=== PATIENT | female | born 1955 | race Caucasian/White ===

== ENCOUNTER 2018-03-11 20:02 | Inpatient (IN) | payer MEDICARE, MEDICAID ==
[~2018-03-11 20:02] MED LIST: ETOMIDATE INJ/PF 20 MG/10 ML SDV IV ONE; SUCCINYLCHOLINE CHLORIDE INJ 200 MG/10 ML VIAL IV ONE
[2018-03-11] MEDS ORDERED: METHYLPREDNISOLONE INJ 125 MG/2 ML SDV IV ONE (20:24)
[2018-03-11] MEDS ORDERED: MAGNESIUM SULFATE INJ 8 MEQ/2 ML IV ONE (20:24)
[2018-03-11] MEDS ORDERED: FUROSEMIDE INJ/PF 40 MG/4 ML SDV IV ONE (20:25)
[2018-03-11] MEDS ORDERED: ALBUTEROL SULFATE 0.083% NEB 2.5 MG/3 ML AMPUL NEB ONE ×3 (20:25→23:10)
[2018-03-11] MEDS ORDERED: PROPOFOL INJ 200 MG/20 ML VIAL IV ONE (20:25)
[2018-03-11] MEDS ORDERED: LEVOFLOXACIN 750 MG/D5W RTU 750 MG/150 ML RTUPB IV ONE (20:32)
--- NOTE | 2018-03-11 20:33 | RADIOLOGY REPORT (SQ) ---
EXAM DESCRIPTION: CHEST SINGLE VIEW COMPLETED DATE/TIME: 03/11/2018 8:24 pm REASON FOR STUDY: intubated COMPARISON: None. EXAM PARAMETERS: NUMBER OF VIEWS: One view. TECHNIQUE: Single frontal radiographic view of the chest acquired. RADIATION DOSE: NA LIMITATIONS: None. FINDINGS: LUNGS AND PLEURA: No infiltrate or effusion. MEDIASTINUM AND HILAR STRUCTURES: No masses. Contour normal. HEART AND VASCULAR STRUCTURES: Heart normal in size. Normal vasculature. BONES: No acute findings. HARDWARE: Endotracheal tube has its tip 3 cm above the aleah. An NG tube extends to the body of the stomach. OTHER: No other significant finding. IMPRESSION: Life lines as described. No acute cardiopulmonary findings. TECHNICAL DOCUMENTATION: JOB ID: [id number] [employer]- All Rights Reserved Reading location - IP/workstation name: [email or web address]
[2018-03-11] MEDS ORDERED: FENTANYL CITRATE INJ/PF 100 MCG/2 ML AMPUL ONE ×2 (20:37→21:19)
[2018-03-11] MEDS ORDERED: FENTANYL CITRATE INJ/PF 100 MCG/2 ML AMPUL IV ONE ×6 (20:37→23:45)
[2018-03-11] MEDS: PROPOFOL 1,000 MG/100 ML INFUS..BTL IV PRN (20:44)
[2018-03-11] MEDS: MAGNESIUM SULFATE/D5W 1 GM/100 ML RTUPB IV SCH ×2 (20:45→21:10)
[2018-03-11 20:49] LABS: ABSOLUTE BASOPHILS # (AUTO) 0.2 10^3/uL (0.0-0.2); ABSOLUTE EOSINOPHILS # (AUTO) 0.3 10^3/uL (0.0-0.6); ABSOLUTE LYMPHOCYTES (AUTO) 6.3 10^3/uL (0.5-4.7); ABSOLUTE MONOCYTES (AUTO) 0.9 10^3/uL (0.1-1.4); ABSOLUTE NEUT (AUTO) 8.5 10^3/uL (1.7-8.2); BASOPHILS % (AUTO) 1.3 % (0-2); EOSINOPHILS % (AUTO) 1.6 % (0-6); HEMATOCRIT 41.3 % (36.0-47.0); HEMOGLOBIN 13.7 g/dL (12.0-15.5); LYMPHOCYTES % (AUTO) 39.1 % (13-45); MEAN CORPUSCULAR HEMOGLOBIN 30.2 pg (27.0-33.4); MEAN CORPUSCULAR HGB CONC 33.2 g/dL (32.0-36.0); MEAN CORPUSCULAR VOLUME 91 fl (80-97); MONOCYTES % (AUTO) 5.5 % (3-13); PLATELET COUNT 470 10^3/uL (150-450); RED BLOOD COUNT 4.54 10^6/uL (3.72-5.28); SEGMENTED NEUTROPHILS % (AUTO) 52.5 % (42-78); TOTAL CELLS COUNTED % (AUTO) 100 %; WHITE BLOOD COUNT 16.1 10^3/uL (4.0-10.5)
[2018-03-11] MEDS ORDERED: KETAMINE HCL INJ 500 MG/10 ML VIAL IV ONE (20:53)
[2018-03-11 21:05] LABS: BLOOD UREA NITROGEN 11 mg/dL (7-20); CALCIUM 8.7 mg/dL (8.4-10.2)
[2018-03-11 21:06] LABS: ALANINE AMINOTRANSFERASE 67 U/L (9-52); ALBUMIN 4.1 g/dL (3.5-5.0); ALKALINE PHOSPHATASE 147 U/L (38-126); ANION GAP 16 (5-19); ASPARTATE AMINO TRANSFERASE 154 U/L (14-36); BILIRUBIN,DIRECT 0.7 mg/dL (0.0-0.4); BILIRUBIN,TOTAL 0.7 mg/dL (0.2-1.3); CARBON DIOXIDE 21 mmol/L (22-30); CHLORIDE 99 mmol/L (98-107); POTASSIUM 5.5 mmol/L (3.6-5.0); SODIUM 135.5 mmol/L (137-145); TOTAL PROTEIN 6.7 g/dL (6.3-8.2)
[2018-03-11 21:19] LABS: GLUCOSE 432 mg/dL (75-110)
--- NOTE | 2018-03-11 21:23 | ER Document Report ---
ED General - General Chief Complaint: Respiratory Distress Stated Complaint: RESPIRATORY DISTRESS Time Seen by Provider: 03/11/18 20:23 Cannot obtain history due to: Unstable vital signs - [facility] Notes: 63-year-old female with a history of COPD, congestive heart failure, asthma, hypertension, high cholesterol, diabetes presents by EMS with acute respiratory failure. According to the family she has not felt well since yesterday. She then called out for help from her room. Family states she was on a breathing treatment but "was not breathing." They called EMS. EMS states that her sats were 80% on her normal neb. She had gradually worsening mental status changes and did not tolerate CPAP. She was being bagged upon arrival. She has had some purposeful movements but has been nonverbal with them. Daughter states that she has been intubated in the past. She recently moved from [place] and has never been to our facility before. Not on home oxygen. Past Medical History - General Information source: Relative Cannot obtain history due to: Unstable vital signs - Social History Smoking Status: Current Every Day Smoker Family History: Reviewed & Not Pertinent - Past Medical History Cardiac Medical History: Reports: Hx Hypercholesterolemia, Hx Hypertension Pulmonary Medical History: Reports: Hx Asthma, Hx COPD, Hx Pneumonia, Hx Intubation, Hx Respiratory Failure Endocrine Medical History: Reports: Hx Diabetes Mellitus Type 2, Hx Hypothyroidism GI Medical History: Reports: Hx Gastroesophageal Reflux Disease Psychiatric Medical History: Reports: Hx Depression Review of Systems - Review of Systems -: Yes ROS unobtainable due to patient's medical condition - respiratory failure Physical Exam - Vital signs Vitals: Pulse Ox 95 03/11/18 20:15 Interpretation: Hypertensive, Tachycardic, Hypoxic - General General appearance: Unresponsive In distress: Severe - HEENT Head: Normocephalic, Atraumatic Conjunctiva: Normal Pupils: Dilated - Respiratory Respiratory status: Agonal respirations, Cyanosis Chest status: No: Ecchymosis Breath sounds: Decreased air movement - Cardiovascular Rhythm: Tachycardia Heart sounds: Normal auscultation Murmur: No Normal capillary refill: No - Abdominal Inspection: Obese Distension: No distension - Extremities General upper extremity: Normal inspection General lower extremity: Normal inspection - Neurological Cognition: Inattentive Marlys Coma Scale Motor: Withdraws to Pain - Skin Skin Temperature: Warm Skin Moisture: Dry Skin Color: Mottled Course - Re-evaluation Re-evalutation: 03/11/18 21:24 Patient mottled upon arrival and being bagged by EMS. She was immediately intubated using a glide scope. Initially tachycardic and hypertensive. After sedation with propofol, blood pressure dropped to 70 systolic. Propofol stopped and fluids are given. She was given fentanyl boluses and started on a ketamine drip. She was given Solu-Medrol, magnesium, and continuous nebs through the vent. She had frequent episodes of hypoxia related to increased respiratory rate when she would awaken. I have had to continuously adjust the vent for appropriate oxygenation and ventilation. She has elevated white blood cell count with suspicious infiltrate on chest x-ray although read negative by radiology. Given Levaquin. Culture sent. 03/11/18 22:03 Discussed with hospitalist for admission. - Vital Signs Vital signs: Temp Pulse Resp BP Pulse Ox 95 03/11/18 20:15 - Laboratory Result Diagrams: 03/11/18 20:30 03/11/18 20:30 Laboratory results interpreted by me: 03/11/18 03/11/18 03/11/18 20:30 20:30 20:30 WBC 16.1 H Plt Count 470 H Absolute Neutrophils 8.5 H Absolute Lymphocytes 6.3 H Carbonic Acid ABG pH ABG pCO2 ABG pO2 ABG O2 Saturation Sodium 135.5 L Potassium 5.5 H Carbon Dioxide 21 L Glucose 432 H* Direct Bilirubin 0.7 H AST 154 H ALT 67 H Alkaline Phosphatase 147 H NT-Pro-B Natriuret Pep 2140 H 03/11/18 20:46 WBC Plt Count Absolute Neutrophils Absolute Lymphocytes Carbonic Acid 1.95 H ABG pH 7.13 L* ABG pCO2 64.7 H ABG pO2 170.6 H ABG O2 Saturation 98.6 H Sodium Potassium Carbon Dioxide Glucose Direct Bilirubin AST ALT Alkaline Phosphatase NT-Pro-B Natriuret Pep Critical Care Note - Critical Care Note Total time excluding time spent on procedures (mins): 60 - Critical care time spent obtaining history from patient or surrogate, discussions with consultants , development of treatment plan with patient or surrogate, evaluation of patient 's response to treatment, examination of patient, ordering and performing treatments and interventions, ordering and review of laboratory studies, re- evaluation of patient's condition, ordering and review of radiographic studies and review of old charts Discharge - Discharge Clinical Impression: Acute respiratory failure with hypoxia and hypercapnia Condition: Critical Disposition: ADMITTED INPATIENT Admitting Provider: Hospitalist Unit Admitted: ICU
[2018-03-11] MEDS ORDERED: INSULIN REG, HUMAN 100 UNIT/ML 3 ML VIAL (PYX) IV ONE (21:26)
[2018-03-11 21:31] LABS: TROPONIN I 0.043 ng/mL
[2018-03-11] MEDS ORDERED: EPINEPHRINE INJ/PF 1 MG/1 ML AMPULE ONE (21:41)
[2018-03-11] MEDS ORDERED: EPINEPHRINE INJ 1 MG/10 ML DISP.SYRIN ONE (21:43)
[2018-03-11 21:46] LABS: ARTERIAL BLOOD BASE EXCESS -8.8 mmol/L; ARTERIAL BLOOD FIO2 100%; ARTERIAL BLOOD H2CO3 1.95 mmol/L (1.05-1.35); ARTERIAL BLOOD HCO3 21.1 mmol/L (20-24); ARTERIAL BLOOD O2 SATURATION 98.6 % (94-98); ARTERIAL BLOOD PCO2 64.7 mmHg (35-45); ARTERIAL BLOOD PO2 170.6 mmHg (80-100); ARTERIAL BLOOD TOTAL CO2 23.1 mmol/L (21-25)
[2018-03-11 21:48] LABS: ARTERIAL BLOOD PH 7.13 (7.35-7.45)
[2018-03-11] MEDS ORDERED: EPINEPHRINE INJ 1 MG/10 ML DISP.SYRIN IV ONE (21:55)
[2018-03-11] MEDS: MIDAZOLAM HCL 50 MG/100 ML RTUINJ IV PRN (22:17)
[2018-03-11 22:19] LABS: APPEARANCE,URINE CLEAR; BILIRUBIN,URINE NEGATIVE (NEGATIVE); COLOR,URINE YELLOW; GLUCOSE, URINE >=500 mg/dL (NEGATIVE); KETONES,URINE NEGATIVE (NEGATIVE); LEUKOCYTE ESTERASE,URINE NEGATIVE (NEGATIVE); NITRITE,URINE NEGATIVE (NEGATIVE); PROTEIN,URINE 100 mg/dL (NEGATIVE); URINE SPECIFIC GRAVITY 1.007; UROBILINOGEN,URINE NEGATIVE mg/dL (<2.0)
[2018-03-11] MEDS ORDERED: DEXTROSE 50%-WATER 25 GM/50 ML DISP.SYRIN IV PRN ×2 (22:52)
[2018-03-11] MEDS ORDERED: DEXTROSE 40% GEL 15 GM TUBE PO PRN ×2 (22:52)
[2018-03-11] MEDS ORDERED: GLUCAGON,HUMAN RECOMB 1 MG INJ SUBCUT PRN (22:52)
[2018-03-11] MEDS ORDERED: PROMETHAZINE HCL INJ 25 MG/1 ML VIAL IV PRN (22:52)
[2018-03-11] MEDS ORDERED: AZITHROMYCIN 500 MG in DEXTROSE 5%-WATER 250 ML IV ONE (23:00)
[2018-03-11] MEDS ORDERED: FENTANYL CITRATE/PF 600 MCG/60 ML BAG IV PRN (23:33)
[2018-03-11] MEDS ORDERED: AZITHROMYCIN INJ 500 MG VIAL IV PRN (23:44)
[2018-03-12 00:41] LABS: ARTERIAL BLOOD BASE EXCESS -5.7 mmol/L; ARTERIAL BLOOD H2CO3 1.81 mmol/L (1.05-1.35); ARTERIAL BLOOD HCO3 23.1 mmol/L (20-24); ARTERIAL BLOOD PCO2 60.2 mmHg (35-45); ARTERIAL BLOOD PO2 99.2 mmHg (80-100)
[2018-03-12 00:48] LABS: ARTERIAL BLOOD FIO2 50%
[2018-03-12] MEDS ORDERED: NOREPINEPHRINE BITARTRATE INJ/PF 4 MG/4 ML SDV IV ONE (00:52)
[2018-03-12] MEDS ORDERED: DEXTROSE 5%-WATER 250 ML with NOREPINEPHRINE BITARTRATE 4 MG IV PRN ×2 (01:03)
[2018-03-12 01:10] LABS: APPEARANCE,URINE CLEAR; BILIRUBIN,URINE NEGATIVE (NEGATIVE); COLOR,URINE STRAW; GLUCOSE, URINE >=500 mg/dL (NEGATIVE); KETONES,URINE NEGATIVE (NEGATIVE); LEUKOCYTE ESTERASE,URINE NEGATIVE (NEGATIVE); NITRITE,URINE NEGATIVE (NEGATIVE); PROTEIN,URINE 30 mg/dL (NEGATIVE); URINE SPECIFIC GRAVITY 1.007; UROBILINOGEN,URINE NEGATIVE mg/dL (<2.0)
[2018-03-12 01:12] LABS: URINE AMPHETAMINES SCREEN NEGATIVE; URINE BARBITURATES SCREEN NEGATIVE; URINE COCAINE SCREEN NEGATIVE; URINE MARIJUANA (THC) SCREEN NEGATIVE; URINE METHADONE SCREEN NEGATIVE; URINE PHENCYCLIDINE SCREEN NEGATIVE
[2018-03-12 01:19] LABS: URINE BENZODIAZEPINES SCREEN UNCONFIRMED POSITIVE
[2018-03-12] MEDS: METHYLPREDNISOLONE INJ 125 MG/2 ML SDV IV SCH ×4 (01:19→21:21)
[2018-03-12] MEDS ORDERED: DEXTROSE 50%-WATER 25 GM/50 ML DISP.SYRIN IV PRN ×2 (02:11)
[2018-03-12] MEDS ORDERED: DEXTROSE 40% GEL 15 GM TUBE PO PRN ×2 (02:11)
[2018-03-12] MEDS ORDERED: GLUCAGON,HUMAN RECOMB 1 MG INJ IM PRN (02:11)
--- NOTE | 2018-03-12 02:21 | PDOC H&P ---
History of Present Illness Admission Date/PCP: 03/11/18 22:18 None Patient complains of: Shortness of breath History of Present Illness: THELMA ARANGO is a 63 year old femaleWith history of COPD, intubated at least twice in the past, comes to the emergency department complaining of progressive shortness of breath. At the time of my evaluation the patient is already intubated on mechanical ventilator, her daughter is at the bedside and tells me that she is short of breath all the time today was worse. Patient was at her daughter's house standing at the counter, she had dinner and she went to her bathroom, suddenly they heard that she sreamed "help"; patient was found laying on the side with her laser treatments on her face. Patient has not been feeling well since the day before. Patient has been bagged upon arrival with subsequent intubation, as had agonal respirations and cyanosis with severe bilateral decreased air movement. Patient recently moved from [place] and does not have any primary care physician, her daughter took her to PCP yet for refill of her medications. Patient is active smoker 1 pack/day. In the ED multiple doses of fentanyl given. Initially placed on ketamine infusion as per the prevent make her severely hypotensive and could not obtain fentanyl infusion. Versed was ordered but not started initially. Initial ABG 7.13/64/110 IV Levaquin given. Past Medical History Cardiac Medical History: Reports: Congestive Heart Failure, Hyperlipidema, Hypertension Pulmonary Medical History: Reports: Asthma, Chronic Obstructive Pulmonary Disease (COPD), Intubation, Pneumonia, Respiratory Failure Endocrine Medical History: Reports: Diabetes Mellitus Type 2, Hypothyroidism GI Medical History: Reports: Gastroesophageal Reflux Disease Psychiatric Medical History: Reports: Depression, General Anxiety Disorder Past Surgical History Past Surgical History: Reports: Hysterectomy, Other - stent was placed unknown order Social History Information Source: Relative Lives with: Family Smoking Status: Current Every Day Smoker Cigarettes Packs Per Day: 20 Frequency of Alcohol Use: Rare Hx Recreational Drug Use: No Hx Prescription Drug Abuse: No - Advance Directive Resuscitation Status: Full Code Family History Family History: Reviewed & Not Pertinent Parental Family History Reviewed: Yes - Mother with diabetes mellitus and leg amputation Children Family History Reviewed: Unknown Sibling(s) Family History Reviewed.: Unknown Review of Systems Review of Systems: Unable to obtain as the patient is intubated under sedation Physical Exam Vital Signs: Temp Pulse Resp BP Pulse Ox 97.9 F 100 18 85/48 L 95 03/12/18 00:40 03/12/18 00:00 03/12/18 00:40 03/12/18 00:00 03/12/18 01:00 Intake & Output 03/10/18 03/11/18 03/12/18 06:59 06:59 06:59 Intake Total 2 Balance 2 Weight 86.6 kg Additional comments: General appearance: Intubated, sedated on mechanical ventilation Head: Normocephalic Eyes: PEERL Ears: External auditory canal and tympanic membranes clear Nose: No nasal discharge. Throat: Intubated, dry mucosa Neck: Neck supple, no masses or thyromegaly. Cardiac: Normal S1 and S2. No S3, S4 or murmurs. Rhythm is regular. There is no peripheral edema, cyanosis or pallor. Extremities are warm and well perfused. Capillary refill is less than 2 seconds. No carotid bruits. Lungs: Bilateral decreased breath sounds, with severe bilateral wheezing, rhonchi, diffuse crackles, not using accessory muscles. Intubated. Abdomen: Positive bowel sounds. Soft. Nondistended, nontender. No guarding or rebound. No masses. No hepatosplenomegaly Extremities: No significant deformity or joint abnormality. No edema. Peripheral pulses intact. No varicosities. Neurological: Unable to evaluate this patient is intubated Skin: Skin normal color, texture and turgor with no lesions or eruptions, warm and dry. Psychiatric: Unable to evaluate this patient is intubated Results Laboratory Results: 03/12/18 03/12/18 00:20 00:30 Carbonic Acid 1.81 H HCO3/H2CO3 Ratio 12:1 ABG pH 7.20 L* ABG pCO2 60.2 H ABG pO2 99.2 ABG HCO3 23.1 ABG O2 Saturation 96.0 ABG Base Excess -5.7 FiO2 50% Urine Color STRAW Urine Appearance CLEAR Urine pH 5.0 Ur Specific [place] 1.007 Urine Protein 30 H Urine Glucose (UA) >=500 H Urine Ketones NEGATIVE Urine Blood SMALL H Urine Nitrite NEGATIVE Ur Leukocyte Esterase NEGATIVE Urine WBC (Auto) 1 Urine RBC (Auto) 1 03/11/18 03/11/18 03/11/18 20:30 20:30 20:30 WBC 16.1 H RBC 4.54 Hgb 13.7 Hct 41.3 MCV 91 MCH 30.2 MCHC 33.2 RDW 14.0 Plt Count 470 H Seg Neutrophils % 52.5 Lymphocytes % 39.1 Monocytes % 5.5 Eosinophils % 1.6 Basophils % 1.3 Absolute Neutrophils 8.5 H Absolute Lymphocytes 6.3 H Absolute Monocytes 0.9 Absolute Eosinophils 0.3 Absolute Basophils 0.2 Carbonic Acid HCO3/H2CO3 Ratio ABG pH ABG pCO2 ABG pO2 ABG HCO3 ABG Total CO2 ABG O2 Saturation ABG Base Excess FiO2 Sodium 135.5 L Potassium 5.5 H Chloride 99 Carbon Dioxide 21 L Anion Gap 16 BUN 11 Creatinine 0.74 Est GFR ( Amer) > 60 Est GFR (Non-Af Amer) > 60 Glucose 432 H* Calcium 8.7 Total Bilirubin 0.7 Direct Bilirubin 0.7 H Neonat Total Bilirubin Not Reportable Neonat Direct Bilirubin Not Reportable Neonat Indirect Bili Not Reportable AST 154 H ALT 67 H Alkaline Phosphatase 147 H Troponin I 0.043 NT-Pro-B Natriuret Pep 2140 H Total Protein 6.7 Albumin 4.1 TSH Urine Color Urine Appearance Urine pH Ur Specific [place] Urine Protein Urine Glucose (UA) Urine Blood Urine Nitrite Urine Bilirubin Urine Urobilinogen Ur Leukocyte Esterase Urine WBC (Auto) Urine RBC (Auto) Squamous Epi Cells Auto Urine Mucus (Auto) Urine Ascorbic Acid Urine Opiates Screen Urine Methadone Screen Ur Barbiturates Screen Ur Phencyclidine Scrn Ur Amphetamines Screen U Benzodiazepines Scrn Urine Cocaine Screen U Marijuana (THC) Screen 03/11/18 03/11/18 03/11/18 20:30 20:30 20:30 WBC RBC Hgb Hct MCV MCH MCHC RDW Plt Count Seg Neutrophils % Lymphocytes % Monocytes % Eosinophils % Basophils % Absolute Neutrophils Absolute Lymphocytes Absolute Monocytes Absolute Eosinophils Absolute Basophils Carbonic Acid HCO3/H2CO3 Ratio ABG pH ABG pCO2 ABG pO2 ABG HCO3 ABG Total CO2 ABG O2 Saturation ABG Base Excess FiO2 Sodium Potassium Chloride Carbon Dioxide Anion Gap BUN Creatinine Est GFR ( Amer) Est GFR (Non-Af Amer) Glucose Calcium Total Bilirubin Direct Bilirubin Neonat Total Bilirubin Neonat Direct Bilirubin Neonat Indirect Bili AST ALT Alkaline Phosphatase Troponin I NT-Pro-B Natriuret Pep Total Protein Albumin TSH 6.21 H Urine Color YELLOW Urine Appearance CLEAR Urine pH 6.0 Ur Specific [place] 1.007 Urine Protein 100 H Urine Glucose (UA) >=500 H Urine Blood SMALL H Urine Nitrite NEGATIVE Urine Bilirubin NEGATIVE Urine Urobilinogen NEGATIVE Ur Leukocyte Esterase NEGATIVE Urine WBC (Auto) 1 Urine RBC (Auto) 1 Squamous Epi Cells Auto 1 Urine Mucus (Auto) RARE Urine Ascorbic Acid NEGATIVE Urine Opiates Screen NEGATIVE Urine Methadone Screen NEGATIVE Ur Barbiturates Screen NEGATIVE Ur Phencyclidine Scrn NEGATIVE Ur Amphetamines Screen NEGATIVE U Benzodiazepines Scrn UNCONFIRMED POSITIVE Urine Cocaine Screen NEGATIVE U Marijuana (THC) Screen NEGATIVE 03/11/18 03/12/18 20:46 00:20 WBC RBC Hgb Hct MCV MCH MCHC RDW Plt Count Seg Neutrophils % Lymphocytes % Monocytes % Eosinophils % Basophils % Absolute Neutrophils Absolute Lymphocytes Absolute Monocytes Absolute Eosinophils Absolute Basophils Carbonic Acid 1.95 H 1.81 H HCO3/H2CO3 Ratio 10:1 12:1 ABG pH 7.13 L* 7.20 L* ABG pCO2 64.7 H 60.2 H ABG pO2 170.6 H 99.2 ABG HCO3 21.1 23.1 ABG Total CO2 23.1 25.0 ABG O2 Saturation 98.6 H 96.0 ABG Base Excess -8.8 FiO2 100% 50% Sodium Potassium Chloride Carbon Dioxide Anion Gap BUN Creatinine Est GFR ( Amer) Est GFR (Non-Af Amer) Glucose Calcium Total Bilirubin Direct Bilirubin Neonat Total Bilirubin Neonat Direct Bilirubin Neonat Indirect Bili AST ALT Alkaline Phosphatase Troponin I NT-Pro-B Natriuret Pep Total Protein Albumin TSH Urine Color Urine Appearance Urine pH Ur Specific [place] Urine Protein Urine Glucose (UA) Urine Blood Urine Nitrite Urine Bilirubin Urine Urobilinogen Ur Leukocyte Esterase Urine WBC (Auto) Urine RBC (Auto) Squamous Epi Cells Auto Urine Mucus (Auto) Urine Ascorbic Acid Urine Opiates Screen Urine Methadone Screen Ur Barbiturates Screen Ur Phencyclidine Scrn Ur Amphetamines Screen U Benzodiazepines Scrn Urine Cocaine Screen U Marijuana (THC) Screen Impressions: Chest X-Ray 03/11/18 20:17 IMPRESSION: Life lines as described. No acute cardiopulmonary findings. Assessment & Plan - Diagnosis (1) Acute respiratory failure with hypoxia and hypercapnia Is this a current diagnosis for this admission?: Yes Plan: Acute hypoxic, hypercapnic respiratory failure, secondary to COPD exacerbation. Chest x-ray negative for infiltrates. Patient is currently intubated under sedation. Continue fentanyl and Versed infusion. RT consult. (2) COPD (chronic obstructive pulmonary disease) Is this a current diagnosis for this admission?: Yes Plan: Patient intubated under sedation, in the ICU. Continue telemetry monitoring. IV azithromycin. Solu-Medrol 60 mg every 6 hours. Repeat chest x-ray in the morning. (3) CHF (congestive heart failure) Is this a current diagnosis for this admission?: Yes Plan: Unknown if systolic or diastolic, due to her hypotension patient has been given fluids in the ED and I will continue with IV fluids until the morning that she has to be reassessed. BNP 2140, unknown baseline. (4) Diabetes mellitus type 2 in obese Is this a current diagnosis for this admission?: Yes Plan: Blood Sugar 432, I will place the patient on Accu-Cheks q. one hour with insulin lispro sliding scale and hypoglycemia protocol. IV fluids has been started. (5) Hypothyroidism Is this a current diagnosis for this admission?: Yes Plan: TSH 6.21, unknown compliance with her home medications. On levothyroxine. (6) Tobacco dependence Is this a current diagnosis for this admission?: Yes Plan: Smokes 1 pack/day. Needs counseline when extubated (7) Elevated LFTs Is this a current diagnosis for this admission?: Yes Plan: ALT 154, ALT 67, AF-1 47, unknown baseline. We will repeat this value. (8) Hyperkalemia Is this a current diagnosis for this admission?: Yes Plan: Potassium 5.5, likely related with her hyperglycemia. Might correct when we correct her blood sugar. - Time Time Spent: 50 to 70 Minutes Critical Time spent with patient: 35 or more minutes Anticipated discharge: Home Within: within 72 hours - Inpatient Certification Based on my medical assessment, after consideration of the patient's comorbidities, presenting symptoms, or acuity I expect that the services needed warrant INPATIENT care.: Yes I certify that my determination is in accordance with my understanding of Medicare's requirements for reasonable and necessary INPATIENT services [42 CFR 412.3e].: Yes Medical Necessity: Risk of Diagnosis Which Will Require Inpatient Eval/Care/ Monitoring
[2018-03-12] MEDS: MIDAZOLAM HCL 50 MG/100 ML RTUINJ IV PRN ×6 (02:26→23:15)
[2018-03-12] MEDS ORDERED: INSULIN LISPRO 100 UNIT/ML 3 ML VIAL ONE (02:38)
[2018-03-12] MEDS: INSULIN LISPRO 100 UNIT/ML 3 ML VIAL SUBCUT PRN ×5 (02:47→23:30)
[2018-03-12] MEDS ORDERED: ETOMIDATE INJ/PF 20 MG/10 ML SDV IV ONE (03:55)
--- NOTE | 2018-03-12 08:26 | EKG REPORT ---
SEVERITY:- ABNORMAL ECG - SINUS TACHYCARDIA PAIRED VENTRICULAR PREMATURE COMPLEXES BORDERLINE RIGHT AXIS DEVIATION LOW VOLTAGE IN FRONTAL LEADS BORDERLINE T WAVE ABNORMALITIES : Confirmed by: Syed Hinds MD 12-Mar-2018 07:33:35
[2018-03-12 09:21] LABS: HEMATOCRIT 38.2 % (36.0-47.0); HEMOGLOBIN 12.8 g/dL (12.0-15.5); MEAN CORPUSCULAR HEMOGLOBIN 29.6 pg (27.0-33.4); MEAN CORPUSCULAR HGB CONC 33.7 g/dL (32.0-36.0); MEAN CORPUSCULAR VOLUME 88 fl (80-97); PLATELET COUNT 397 10^3/uL (150-450); RED BLOOD COUNT 4.34 10^6/uL (3.72-5.28); WHITE BLOOD COUNT 15.1 10^3/uL (4.0-10.5)
[2018-03-12 09:29] LABS: ALANINE AMINOTRANSFERASE 96 U/L (9-52); ALKALINE PHOSPHATASE 142 U/L (38-126); ANION GAP 11 (5-19); ASPARTATE AMINO TRANSFERASE 126 U/L (14-36); BILIRUBIN,DIRECT 0.4 mg/dL (0.0-0.4); BILIRUBIN,TOTAL 0.5 mg/dL (0.2-1.3); BLOOD UREA NITROGEN 14 mg/dL (7-20); CALCIUM 8.4 mg/dL (8.4-10.2); CARBON DIOXIDE 23 mmol/L (22-30); CHLORIDE 104 mmol/L (98-107); GLUCOSE 392 mg/dL (75-110); POTASSIUM 4.9 mmol/L (3.6-5.0); TOTAL PROTEIN 6.6 g/dL (6.3-8.2)
[2018-03-12 09:51] LABS: ARTERIAL BLOOD BASE EXCESS -2.4 mmol/L; ARTERIAL BLOOD HCO3 24.3 mmol/L (20-24); ARTERIAL BLOOD O2 SATURATION 94.2 % (94-98); ARTERIAL BLOOD PCO2 49.7 mmHg (35-45); ARTERIAL BLOOD PH 7.31 (7.35-7.45); ARTERIAL BLOOD PO2 77.5 mmHg (80-100); ARTERIAL BLOOD TOTAL CO2 25.8 mmol/L (21-25)
[2018-03-12 09:54] LABS: ARTERIAL BLOOD FIO2 50%
[2018-03-12 10:06] LABS: ABSOLUTE LYMPHOCYTES# (MANUAL) 0.5 10^3/uL (0.5-4.7); ABSOLUTE MONOCYTES # (MANUAL) 0.2 10^3/uL (0.1-1.4); ABSOLUTE NEUTROPHILS# (MANUAL) 14.5 10^3/uL (1.7-8.2); BASOPHILS % (MANUAL) 0 % (0-2); EOSINOPHILS % (MANUAL) 0 % (0-6); LYMPHOCYTES % (MANUAL) 3 % (13-45); MONOCYTES % (MANUAL) 1 % (3-13); SEGMENTED NEUTROPHILS % (MAN) 96 % (42-78); TOTAL CELLS COUNTED 100
[2018-03-12 10:07] LABS: ANISOCYTOSIS SLIGHT; PLATELET CLUMPS PRESENT; PLATELET COMMENT ADEQUATE; PLATELET LARGE PRESENT; POIKILOCYTOSIS SLIGHT; SCHISTOCYTES SLIGHT; TOXIC GRANULATION 1+; TOXIC VACUOLATION PRESENT
[2018-03-12 10:08] LABS: ARTERIAL BLOOD BASE EXCESS -5.5 mmol/L; ARTERIAL BLOOD FIO2 50%; ARTERIAL BLOOD H2CO3 1.35 mmol/L (1.05-1.35); ARTERIAL BLOOD HCO3 21.1 mmol/L (20-24); ARTERIAL BLOOD O2 SATURATION 98.1 % (94-98); ARTERIAL BLOOD PCO2 44.9 mmHg (35-45); ARTERIAL BLOOD PH 7.29 (7.35-7.45); ARTERIAL BLOOD TOTAL CO2 22.4 mmol/L (21-25)
[2018-03-12 10:39] LABS: ABSOLUTE LYMPHOCYTES (AUTO) 0.6 10^3/uL (0.5-4.7); ABSOLUTE MONOCYTES (AUTO) 0.3 10^3/uL (0.1-1.4); ABSOLUTE NEUT (AUTO) 7.2 10^3/uL (1.7-8.2); HEMATOCRIT 36.5 % (36.0-47.0); HEMOGLOBIN 12.5 g/dL (12.0-15.5); LYMPHOCYTES % (AUTO) 7.7 % (13-45); MEAN CORPUSCULAR HEMOGLOBIN 30.3 pg (27.0-33.4); MEAN CORPUSCULAR HGB CONC 34.3 g/dL (32.0-36.0); MEAN CORPUSCULAR VOLUME 88 fl (80-97); MONOCYTES % (AUTO) 3.1 % (3-13); PLATELET COUNT 354 10^3/uL (150-450); RED BLOOD COUNT 4.12 10^6/uL (3.72-5.28); RED CELL DISTRIBUTION WIDTH 14.3 % (11.5-14.0); SEGMENTED NEUTROPHILS % (AUTO) 89.2 % (42-78); TOTAL CELLS COUNTED % (AUTO) 100 %; WHITE BLOOD COUNT 8.1 10^3/uL (4.0-10.5)
[2018-03-12] MEDS: AZITHROMYCIN 500 MG in DEXTROSE 5%-WATER 250 ML IV SCH (10:59)
[2018-03-12 11:00] LABS: ANION GAP 7 (5-19); BLOOD UREA NITROGEN 13 mg/dL (7-20); CALCIUM 8.6 mg/dL (8.4-10.2); CARBON DIOXIDE 25 mmol/L (22-30); CHLORIDE 106 mmol/L (98-107); GLUCOSE 294 mg/dL (75-110); POTASSIUM 4.8 mmol/L (3.6-5.0); SODIUM 138.3 mmol/L (137-145)
[2018-03-12] MEDS: IPRATROPIUM/ALBUTEROL 0.5-2.5 MG/3 ML AMPUL NEB PRN ×3 (11:28→19:56)
[2018-03-12] MEDS: PANTOPRAZOLE SODIUM 40 MG VIAL IV SCH (15:04)
[2018-03-12] MEDS: HEPARIN SOD (PORCINE) 5,000 UNIT/ML 1 ML SYRINGE SUBCUT SCH ×2 (15:05→21:21)
[2018-03-12 15:27] LABS: ARTERIAL BLOOD BASE EXCESS -4.2 mmol/L; ARTERIAL BLOOD H2CO3 1.14 mmol/L (1.05-1.35); ARTERIAL BLOOD HCO3 20.8 mmol/L (20-24); ARTERIAL BLOOD O2 SATURATION 96.9 % (94-98); ARTERIAL BLOOD PCO2 37.9 mmHg (35-45); ARTERIAL BLOOD PH 7.36 (7.35-7.45); ARTERIAL BLOOD PO2 93.9 mmHg (80-100)
[2018-03-12 15:30] LABS: ARTERIAL BLOOD FIO2 40%
[2018-03-12] MEDS: PROPOFOL 1,000 MG/100 ML INFUS..BTL IV PRN ×2 (15:45→21:23)
[2018-03-12] MEDS: NORMAL SALINE 1000 ML 1,000 ML IV PRN (16:52)
[2018-03-13 04:03] LABS: ABSOLUTE BASOPHILS # (AUTO) 0.1 10^3/uL (0.0-0.2); ABSOLUTE MONOCYTES (AUTO) 0.8 10^3/uL (0.1-1.4); ABSOLUTE NEUT (AUTO) 16.8 10^3/uL (1.7-8.2); BASOPHILS % (AUTO) 0.3 % (0-2); EOSINOPHILS % (AUTO) 0.1 % (0-6); HEMATOCRIT 35.8 % (36.0-47.0); LYMPHOCYTES % (AUTO) 5.5 % (13-45); MEAN CORPUSCULAR HEMOGLOBIN 29.4 pg (27.0-33.4); MEAN CORPUSCULAR HGB CONC 33.5 g/dL (32.0-36.0); MEAN CORPUSCULAR VOLUME 88 fl (80-97); MONOCYTES % (AUTO) 4.1 % (3-13); PLATELET COUNT 325 10^3/uL (150-450); RED BLOOD COUNT 4.07 10^6/uL (3.72-5.28); RED CELL DISTRIBUTION WIDTH 14.2 % (11.5-14.0); TOTAL CELLS COUNTED % (AUTO) 100 %
[2018-03-13] MEDS: MIDAZOLAM HCL 50 MG/100 ML RTUINJ IV PRN ×3 (04:11→23:28)
[2018-03-13] MEDS: PROPOFOL 1,000 MG/100 ML INFUS..BTL IV PRN ×4 (04:11→22:50)
[2018-03-13 04:20] LABS: ANION GAP 9 (5-19); BLOOD UREA NITROGEN 14 mg/dL (7-20); CALCIUM 8.5 mg/dL (8.4-10.2); CARBON DIOXIDE 22 mmol/L (22-30); CHLORIDE 109 mmol/L (98-107); GLUCOSE 248 mg/dL (75-110); POTASSIUM 4.2 mmol/L (3.6-5.0)
[2018-03-13 04:32] LABS: WHITE BLOOD COUNT 18.7 10^3/uL (4.0-10.5)
[2018-03-13 04:53] LABS: ARTERIAL BLOOD BASE EXCESS 0.3 mmol/L; ARTERIAL BLOOD FIO2 40; ARTERIAL BLOOD H2CO3 1.24 mmol/L (1.05-1.35); ARTERIAL BLOOD HCO3 25.1 mmol/L (20-24); ARTERIAL BLOOD O2 SATURATION 95.1 % (94-98); ARTERIAL BLOOD PCO2 41.3 mmHg (35-45); ARTERIAL BLOOD PO2 74.9 mmHg (80-100); ARTERIAL BLOOD TOTAL CO2 26.4 mmol/L (21-25)
[2018-03-13] MEDS: NORMAL SALINE 1000 ML 1,000 ML IV PRN ×2 (05:18→20:19)
[2018-03-13] MEDS: METHYLPREDNISOLONE INJ 125 MG/2 ML SDV IV SCH ×3 (05:19→21:06)
[2018-03-13] MEDS: HEPARIN SOD (PORCINE) 5,000 UNIT/ML 1 ML SYRINGE SUBCUT SCH ×3 (05:19→21:07)
[2018-03-13] MEDS: INSULIN LISPRO 100 UNIT/ML 3 ML VIAL SUBCUT PRN ×4 (05:19→23:45)
--- NOTE | 2018-03-13 06:13 | RADIOLOGY REPORT (SQ) ---
EXAM DESCRIPTION: XR CHEST 1 VIEW COMPLETED DATE/TME: 03/13/2018 06:00 CLINICAL HISTORY: 63 years Female, resp failure COMPARISON: One day prior. NUMBER OF VIEWS/TECHNIQUE: 1/AP FINDINGS: Adequate lung volume, clear parenchyma, normal cardiac silhouette, atherosclerosis, tip of an endotracheal tube is 6.6 cm from the aleah, consider 1.6 cm advancement of the endotracheal tube. Adequate appearing an enteric tube is obscured distally. No pneumothorax. Stable bony thorax. IMPRESSION: No significant change.
[2018-03-13] MEDS: IPRATROPIUM/ALBUTEROL 0.5-2.5 MG/3 ML AMPUL NEB PRN (08:47)
[2018-03-13] MEDS: PANTOPRAZOLE SODIUM 40 MG VIAL IV SCH (10:20)
[2018-03-13] MEDS: AZITHROMYCIN 500 MG in DEXTROSE 5%-WATER 250 ML IV SCH (10:20)
[2018-03-13 10:32] LABS: APPEARANCE,URINE SLIGHTLY-CLOUDY; BILIRUBIN,URINE NEGATIVE (NEGATIVE); COLOR,URINE YELLOW; GLUCOSE, URINE 150 mg/dL (NEGATIVE); KETONES,URINE TRACE mg/dL (NEGATIVE); LEUKOCYTE ESTERASE,URINE NEGATIVE (NEGATIVE); NITRITE,URINE NEGATIVE (NEGATIVE); PROTEIN,URINE 100 mg/dL (NEGATIVE); UROBILINOGEN,URINE NEGATIVE mg/dL (<2.0)
[2018-03-13] MEDS: BUDESONIDE NEB 0.5 MG/2 ML AMPUL NEB SCH ×2 (10:43→19:53)
[2018-03-13] MEDS ORDERED: BUDESONIDE NEB 0.5 MG/2 ML AMPUL NEB ONE (10:43)
[2018-03-13] MEDS: IPRATROPIUM/ALBUTEROL 0.5-2.5 MG/3 ML AMPUL NEB SCH ×2 (14:07→19:53)
[2018-03-13] MEDS ORDERED: VANCOMYCIN HCL 0 MG in DEXTROSE 5%-WATER 250 ML IV NR (15:45)
--- NOTE | 2018-03-13 16:00 | PDOC PROGRESS REPORT ---
Subjective Progress Note for:: 03/13/18 Subjective:: THELMA ARANGO is a 63 year old femaleWith history of COPD, intubated at least twice in the past, came to the ED c/o progressive SOB. Intubated in ED. Per daughter's she was standing at the counter, she had dinner and she went to her bathroom, suddenly they heard that she sreamed "help"; and the found her side with her. Prior day was feeling well. She was bagged upon arrival with subsequent intubation, as had agonal respirations and cyanosis with severe bilateral decreased air movement. Patient from [place] and does not have any PCP. Patient is active smoker 1 pack/day. Initial ABG 7.13/64/110 No acute events overnight. He was successfully weaned off of vasopressors, fentanyl drip, and and Versed. Propofol was started. Versed has to be restarted because patient was getting agitated and anxious on Versed alone. Reason For Visit: ACUTE HYPOXIC RESPIRATORY FAILURE Physical Exam Vital Signs: Temp Pulse Resp BP Pulse Ox 99.3 F 96 20 113/88 H 95 03/13/18 14:38 03/13/18 14:07 03/13/18 14:38 03/13/18 14:38 03/13/18 14:38 Intake & Output 03/12/18 03/13/18 03/14/18 06:59 06:59 06:59 Intake Total 21 1703 169 Output Total 400 1520 989 Balance -379 183 -820 Weight 86.6 kg 89.8 kg General appearance: PRESENT: no acute distress, well-developed, well-nourished, other - Intubated Head exam: PRESENT: atraumatic, normocephalic Ear exam: PRESENT: normal external ear exam Mouth exam: PRESENT: moist, tongue midline Neck exam: ABSENT: carotid bruit, JVD, lymphadenopathy, thyromegaly Respiratory exam: PRESENT: clear to auscultation sandor. ABSENT: rales, rhonchi, wheezes Cardiovascular exam: PRESENT: RRR. ABSENT: diastolic murmur, rubs, systolic murmur Pulses: PRESENT: normal dorsalis pedis pul Vascular exam: PRESENT: normal capillary refill GI/Abdominal exam: PRESENT: hypoactive bowel sounds, normal bowel sounds, soft. ABSENT: distended, guarding, mass, organolmegaly, rebound, tenderness Rectal exam: PRESENT: deferred Extremities exam: ABSENT: calf tenderness, clubbing, pedal edema Musculoskeletal exam: PRESENT: normal inspection Neurological exam: PRESENT: alert, awake, oriented to person, oriented to place , oriented to time, oriented to situation, CN II-XII grossly intact. ABSENT: motor sensory deficit Psychiatric exam: PRESENT: appropriate affect, normal mood. ABSENT: homicidal ideation, suicidal ideation Skin exam: PRESENT: dry, intact, warm. ABSENT: cyanosis, rash Results Laboratory Results: 03/13/18 03:50 03/13/18 03:50 03/12/18 03/13/18 03/13/18 15:10 03:50 03:50 WBC 18.7 H D RBC 4.07 Hgb 12.0 Hct 35.8 L MCV 88 MCH 29.4 MCHC 33.5 RDW 14.2 H Plt Count 325 Seg Neutrophils % 90.0 H Lymphocytes % 5.5 L Monocytes % 4.1 Eosinophils % 0.1 Basophils % 0.3 Absolute Neutrophils 16.8 H Absolute Lymphocytes 1.0 Absolute Monocytes 0.8 Absolute Eosinophils 0.0 Absolute Basophils 0.1 Carbonic Acid 1.14 HCO3/H2CO3 Ratio 18:1 ABG pH 7.36 ABG pCO2 37.9 ABG pO2 93.9 ABG HCO3 20.8 ABG O2 Saturation 96.9 ABG Base Excess -4.2 FiO2 40% Sodium 140.0 Potassium 4.2 Chloride 109 H Carbon Dioxide 22 Anion Gap 9 BUN 14 Creatinine 0.51 L Est GFR ( Amer) > 60 Est GFR (Non-Af Amer) > 60 Glucose 248 H Calcium 8.5 Magnesium 2.2 Urine Color Urine Appearance Urine pH Ur Specific [place] Urine Protein Urine Glucose (UA) Urine Ketones Urine Blood Urine Nitrite Ur Leukocyte Esterase Urine WBC (Auto) Urine RBC (Auto) 03/13/18 03/13/18 04:45 09:51 WBC RBC Hgb Hct MCV MCH MCHC RDW Plt Count Seg Neutrophils % Lymphocytes % Monocytes % Eosinophils % Basophils % Absolute Neutrophils Absolute Lymphocytes Absolute Monocytes Absolute Eosinophils Absolute Basophils Carbonic Acid 1.24 HCO3/H2CO3 Ratio 20:1 ABG pH 7.40 ABG pCO2 41.3 ABG pO2 74.9 L ABG HCO3 25.1 H ABG O2 Saturation 95.1 ABG Base Excess 0.3 FiO2 40 Sodium Potassium Chloride Carbon Dioxide Anion Gap BUN Creatinine Est GFR ( Amer) Est GFR (Non-Af Amer) Glucose Calcium Magnesium Urine Color YELLOW Urine Appearance SLIGHTLY-CLOUDY Urine pH 5.0 Ur Specific [place] 1.030 Urine Protein 100 H Urine Glucose (UA) 150 H Urine Ketones TRACE H Urine Blood NEGATIVE Urine Nitrite NEGATIVE Ur Leukocyte Esterase NEGATIVE Urine WBC (Auto) 1 Urine RBC (Auto) 3 03/12/18 03/12/18 03:59 03:59 Troponin I 0.054 NT-Pro-B Natriuret Pep 3480 H Impressions: Chest X-Ray 03/13/18 06:00 IMPRESSION: No significant change. Assessment & Plan - Diagnosis (1) Acute respiratory failure with hypoxia and hypercapnia Is this a current diagnosis for this admission?: Yes Plan: Currently intubated. No ABG pH of 7.4, carbon dioxide 41, O2 74 on FiO2 of 40% . We will continue ventilatory support. ABG tomorrow. Patient had marked leukocytosis of 18,000 will stop azithromycin and is tolerated broad-spectrum antibiotics. Cultures pending (2) COPD (chronic obstructive pulmonary disease) Is this a current diagnosis for this admission?: Yes Plan: Continue ventilatory management, steroids. (3) Diabetes mellitus type 2 in obese Is this a current diagnosis for this admission?: Yes (4) Elevated LFTs Is this a current diagnosis for this admission?: Yes Plan: No prior history. Hepatitis panel and liver ultrasound to rule out any hepatitis or cirrhosis. (5) Hypothyroidism Is this a current diagnosis for this admission?: Yes Plan: THC is 6.21 which is mildly elevated her free T4 and T3. (6) Tobacco dependence Is this a current diagnosis for this admission?: Yes Plan: Place on nicotine patch. (7) Pneumonia Is this a current diagnosis for this admission?: Yes Plan: Patient has been having marked leukocytosis will start on empiric antibiotics cultures have been negative. (8) CHF (congestive heart failure) Is this a current diagnosis for this admission?: Yes Plan: Patient recently moved from [place] no records available unsure if patient has history of CAD. However BNP was 3480 on admission. Will obtain echocardiography. Monitor volume status. (9) Frequent PVCs Is this a current diagnosis for this admission?: Yes Plan: Continue telemetry. Cardiology consulted. Troponins negative on admission.
[2018-03-13 17:24] LABS: POTASSIUM 3.9 mmol/L (3.6-5.0)
[2018-03-13 18:06] LABS: FREE T3 2.68 pg/mL (2.77-5.27); FREE T4 (FREE THYROXINE) 1.11 ng/dL (0.78-2.19)
[2018-03-13] MEDS: PIPERACILLIN SODIUM/TAZOBACTAM 4.5 GM in NORMAL SALINE 100 ML IV SCH ×2 (19:03→23:28)
--- NOTE | 2018-03-13 19:27 | XCELERA REPORT ---
[address] [address] Transthoracic Echocardiogram Report Name: THELMA ARANGO Age: 63 yrs Gender: Female : 1955 Patient Status: Inpatient Patient Location: ICU^601^A Study Date: 03/13/2018 01:52 PM Height: 66 in Weight: 197 lb BSA: 2.0 m2 Procedure: A complete two-dimensional transthoracic echocardiogram was performed (2D, M-mode, spectral and color flow Doppler). The study was technically difficult with many images being suboptimal in quality. Reason For Study: multifocal PVCs Ordering Physician: YOUSIF PALM Performed By: Estefany Bernal Interpretation Summary The Ejection Fraction estimate is 20-25% Doppler measurements suggest reversible restrictive left ventricular relaxation, which is associated with grade III/IV or moderate diastolic dysfunction There is mild concentric left ventricular hypertrophy. Left ventricular systolic function is severely reduced. The left ventricle is grossly normal size. There is severe global hypokinesis of the left ventricle. Regional wall motion abnormalities cannot be excluded due to limited visualization. The right ventricle is grossly normal size. The right ventricular systolic function is mildly reduced. The left atrium is moderately dilated. The right atrium is normal in size There is a mild amount of mitral regurgitation There is no mitral valve stenosis. There is no aortic valve stenosis No aortic regurgitation is present. There is a mild amount of tricuspid regurgitation There is moderate pulmonary hypertension by echo Best estimated right ventricular systolic pressure is elevated at 50-60mmHg. The aortic root is not well visualized. The inferior vena cava appeared normal and decreased > 50% with respiration (RAP 5-10 mmHg) MMode/2D Measurements & Calculations RVDd: 2.2 cm LVIDd: 4.7 cm FS: 14.5 % Ao root diam: 2.8 cm IVSd: 0.93 cm LVIDs: 4.1 cm EDV(Teich): 104.3 ml Ao root area: 6.1 cm2 LVPWd: 0.86 cm ESV(Teich): 72.1 ml LA dimension: 4.2 cm EF(Teich): 30.9 % Doppler Measurements & Calculations MV E max sam: MV P1/2t max sam: Ao V2 max: LV V1 max P.7 cm/sec 104.6 cm/sec 168.3 cm/sec 1.5 mmHg MV A max sam: MV P1/2t: 45.8 msec Ao max PG: LV V1 max: 72.1 cm/sec MVA(P1/2t): 4.8 cm2 11.3 mmHg 61.7 cm/sec MV E/A: 1.4 MV dec slope: 669.1 cm/sec2 MV dec time: 0.14 sec PA V2 max: TR max sam: MV P1/2t-pr_phl: 73.1 cm/sec 335.3 cm/sec 45.8 msec PA max P.1 mmHg TR max P.0 mmHg Left Ventricle The left ventricle is grossly normal size. There is mild concentric left ventricular hypertrophy. The Ejection Fraction estimate is 20-25%. Left ventricular systolic function is severely reduced. Doppler measurements suggest reversible restrictive left ventricular relaxation, which is associated with grade III/IV or moderate diastolic dysfunction. There is severe global hypokinesis of the left ventricle. Regional wall motion abnormalities cannot be excluded due to limited visualization. Right Ventricle The right ventricle is grossly normal size. The right ventricular systolic function is mildly reduced. Atria The right atrium is normal in size. The left atrium is moderately dilated. Mitral Valve The mitral valve is grossly normal. There is no mitral valve stenosis. There is a mild amount of mitral regurgitation. Aortic Valve The aortic valve is mildly calcified. There is no aortic valve stenosis. No aortic regurgitation is present. Tricuspid Valve The tricuspid valve is not well visualized, but is grossly normal. There is no tricuspid stenosis. There is a mild amount of tricuspid regurgitation. There is moderate pulmonary hypertension by echo. Best estimated right ventricular systolic pressure is elevated at 50-60mmHg. Pulmonic Valve The pulmonic valve is not well visualized. Great Vessels The aortic root is not well visualized. The inferior vena cava appeared normal and decreased > 50% with respiration (RAP 5-10 mmHg). Effusions There is no pericardial effusion. : YOUSIF PALM > Yousif Palm
--- NOTE | 2018-03-13 19:36 | PDOC CONSULTATION ---
Consultation Consult Date: 03/13/18 Attending physician:: NILE PALM Consult reason:: Increased ventricular ectopy History of Present Illness Admission Date/PCP: 03/11/18 22:18 Patient complains of: Currently intubated and sedated History of Present Illness: THELMA ARANGO is a 63 year old femaleWith history of COPD, intubated at least twice in the past, comes to the emergency department complaining of progressive shortness of breath. At the time of my evaluation the patient is already intubated on mechanical ventilator, her daughter is at the bedside and tells me that she is short of breath all the time today was worse. Patient was at her daughter's house standing at the counter, she had dinner and she went to her bathroom, suddenly they heard that she sreamed "help"; patient was found laying on the side with her laser treatments on her face. Patient has not been feeling well since the day before. Patient has been bagged upon arrival with subsequent intubation, as had agonal respirations and cyanosis with severe bilateral decreased air movement. Patient recently moved from [place] and does not have any primary care physician, her daughter took her to PCP yet for refill of her medications. Patient is active smoker 1 pack/day. In the ED multiple doses of fentanyl given. Initially placed on ketamine infusion as per the prevent make her severely hypotensive and could not obtain fentanyl infusion. Versed was ordered but not started initially. Initial ABG 7.13/64/110 IV Levaquin given. Patient daughter on bedside. History reviewed with her. Patient is noted to have severe congestive heart failure and also very weak heart. She has not seen a digital marketing specialist locally. She denied any prior history of myocardial infarction, bypass, there is questionable history of stents in the heart. Past Medical History Cardiac Medical History: Reports: Congestive Heart Failure, Hyperlipidema, Hypertension Pulmonary Medical History: Reports: Asthma, Chronic Obstructive Pulmonary Disease (COPD), Intubation, Pneumonia, Respiratory Failure Endocrine Medical History: Reports: Diabetes Mellitus Type 2, Hypothyroidism GI Medical History: Reports: Gastroesophageal Reflux Disease Psychiatric Medical History: Reports: Depression, General Anxiety Disorder Past Surgical History Past Surgical History: Reports: Hysterectomy, Other - stent was placed unknown order Social History Information Source: Relative Lives with: Family Smoking Status: Current Every Day Smoker Cigarettes Packs Per Day: 20 Frequency of Alcohol Use: Rare Hx Recreational Drug Use: No Hx Prescription Drug Abuse: No - Advance Directive Resuscitation Status: Full Code Surrogate healthcare decision maker:: Patient's daughter is the surrogate decision-maker Family History Family History: Reviewed & Not Pertinent Parental Family History Reviewed: Yes Children Family History Reviewed: Yes Sibling(s) Family History Reviewed.: Yes Medication/Allergy Home Medications: Albuterol Sulfate [Ventolin HFA MDI 18 GM] 2 puff IH Q6HP PRN 03/12/18 Atorvastatin Calcium [Lipitor 40 mg Tablet] 40 mg PO QHS 03/12/18 Budesonide/Formoterol Fumarate [Symbicort Hfa 160-4.5 Mcg Inhaler 6 gm] 1 puff IH Q12 03/12/18 Cilostazol 50 mg PO Q12 03/12/18 Clonazepam [Klonopin 1 mg Tablet] 2 mg PO Q12 03/12/18 Clonidine HCl [Catapres 0.2 mg Tablet] 0.2 mg PO DAILY 03/12/18 Furosemide [Lasix 20 mg Tablet] 20 mg PO QAM 03/12/18 Gabapentin [Neurontin 400 mg Capsule] 400 mg PO Q8 03/12/18 Ipratropium/Albuterol Sulfate [Combivent Respimat 4 gm Mdi] 1 puff IH Q12 Ipratropium/Albuterol Sulfate [Duoneb 3 ml Ampul] 3 ml NEB RTQ6HP PRN 03/12/18 Levothyroxine Sodium [Synthroid 0.025 mg Tablet] 25 mcg PO Q6AM 03/12/18 Losartan Potassium [Cozaar 25 mg Tablet] 25 mg PO DAILY 03/12/18 Metformin HCl [Glucophage] 850 mg PO BIDBS 03/12/18 Montelukast Sodium [Singulair 10 mg Tablet] 10 mg PO QHS 03/12/18 Nifedipine [Nifedipine ER] 30 mg PO DAILY 03/12/18 Omeprazole 20 mg PO DAILY 03/12/18 Sertraline HCl [Zoloft 50 mg Tablet] 50 mg PO DAILY 03/12/18 Umeclidinium [place] [Incruse Ellipta] 1 puff IH DAILY 03/12/18 Allergies/Adverse Reactions: codeine Allergy (Intermediate, Verified 03/12/18 02:46) Review of Systems ROS unobtainable: Due to endotracheal tube Physical Exam Vital Signs: Temp Pulse Resp BP Pulse Ox 99.0 F 89 20 112/95 H 94 03/13/18 18:00 03/13/18 18:00 03/13/18 18:00 03/13/18 18:00 03/13/18 18:00 Intake & Output 03/12/18 03/13/18 03/14/18 06:59 06:59 06:59 Intake Total 21 1703 259 Output Total 400 1520 1319 Balance -379 183 -1060 Weight 86.6 kg 89.8 kg Exam: GENERAL: well-nourished and in no acute distress. Patient is intubated and sedated. Orientation cannot be checked HEAD: Atraumatic, normocephalic. EYES: Pupils equal round and reactive to light, extraocular movements could not be checked, sclera anicteric, conjunctiva are normal. ENT: TMs normal, nares patent, oropharynx clear without exudates. Moist mucous membranes. No oral ulcerations or bleeding gums noted NECK: supple without lymphadenopathy or JVD. Trachea is central. No cervical or axillary lymphadenopathy noted. Carotids are 2+ LUNGS: Breath sounds mostly clear to auscultation patient is noted to have bibasal crackles at the extreme bases CHEST: Palpation of the chest wall shows no significant chest wall tenderness or abnormalities. HEART: [place] GENERAL, No PSH, 2/6 IVAN aortic area, 1/6 gee systolic murmur mitral area , no rubs or gallops. ABDOMEN: Soft, no significant tenderness appreciated, normoactive bowel sounds. No guarding, no rebound. No rigidity noted . No masses appreciated. EXTREMITIES: Pedal pulses are 1-2+, no calf tenderness noted, 1+ pedal edema noted. No clubbing or cyanosis. NEUROLOGICAL: The patient cannot participate in the neurological exam but no facial asymmetry noted. Extremities slightly hypotonic PSYCH: This cannot be evaluated. Patient cannot participate. SKIN: No significant ecchymosis, rash, or signs of pruritus noted. MUSCULOSKELETAL EXAM: No significant joint swelling noted. Patient cannot participate in musculoskeletal exam Results Laboratory Results: 03/13/18 03:50 03/13/18 17:00 03/13/18 03/13/18 03/13/18 03:50 03:50 04:45 WBC 18.7 H D RBC 4.07 Hgb 12.0 Hct 35.8 L MCV 88 MCH 29.4 MCHC 33.5 RDW 14.2 H Plt Count 325 Seg Neutrophils % 90.0 H Lymphocytes % 5.5 L Monocytes % 4.1 Eosinophils % 0.1 Basophils % 0.3 Absolute Neutrophils 16.8 H Absolute Lymphocytes 1.0 Absolute Monocytes 0.8 Absolute Eosinophils 0.0 Absolute Basophils 0.1 Carbonic Acid 1.24 HCO3/H2CO3 Ratio 20:1 ABG pH 7.40 ABG pCO2 41.3 ABG pO2 74.9 L ABG HCO3 25.1 H ABG O2 Saturation 95.1 ABG Base Excess 0.3 FiO2 40 Sodium 140.0 Potassium 4.2 Chloride 109 H Carbon Dioxide 22 Anion Gap 9 BUN 14 Creatinine 0.51 L Est GFR ( Amer) > 60 Est GFR (Non-Af Amer) > 60 Glucose 248 H Calcium 8.5 Magnesium 2.2 Free T4 Free T3 pg/mL Urine Color Urine Appearance Urine pH Ur Specific [place] Urine Protein Urine Glucose (UA) Urine Ketones Urine Blood Urine Nitrite Ur Leukocyte Esterase Urine WBC (Auto) Urine RBC (Auto) 03/13/18 03/13/18 03/13/18 09:51 17:00 17:00 WBC RBC Hgb Hct MCV MCH MCHC RDW Plt Count Seg Neutrophils % Lymphocytes % Monocytes % Eosinophils % Basophils % Absolute Neutrophils Absolute Lymphocytes Absolute Monocytes Absolute Eosinophils Absolute Basophils Carbonic Acid HCO3/H2CO3 Ratio ABG pH ABG pCO2 ABG pO2 ABG HCO3 ABG O2 Saturation ABG Base Excess FiO2 Sodium Potassium 3.9 Chloride Carbon Dioxide Anion Gap BUN Creatinine Est GFR ( Amer) Est GFR (Non-Af Amer) Glucose Calcium Magnesium 2.2 Free T4 1.11 Free T3 pg/mL 2.68 L Urine Color YELLOW Urine Appearance SLIGHTLY-CLOUDY Urine pH 5.0 Ur Specific [place] 1.030 Urine Protein 100 H Urine Glucose (UA) 150 H Urine Ketones TRACE H Urine Blood NEGATIVE Urine Nitrite NEGATIVE Ur Leukocyte Esterase NEGATIVE Urine WBC (Auto) 1 Urine RBC (Auto) 3 03/12/18 03/12/18 03:59 03:59 Troponin I 0.054 NT-Pro-B Natriuret Pep 3480 H EKG Comments: Sinus tachycardia, occasional VPCs, no acute ST-T wave changes are noted. Impressions: Chest X-Ray 03/13/18 06:00 IMPRESSION: No significant change. Assessment & Plan - Diagnosis (1) Acute respiratory failure with hypoxia and hypercapnia Is this a current diagnosis for this admission?: Yes (2) CHF (congestive heart failure) Is this a current diagnosis for this admission?: Yes (3) COPD (chronic obstructive pulmonary disease) Qualifiers: COPD type: unspecified COPD Qualified Code(s): J44.9 - Chronic obstructive pulmonary disease, unspecified Is this a current diagnosis for this admission?: Yes (4) Diabetes mellitus type 2 in obese Is this a current diagnosis for this admission?: Yes (5) Frequent PVCs Is this a current diagnosis for this admission?: Yes (6) Tobacco dependence Is this a current diagnosis for this admission?: Yes (7) Pneumonia Qualifiers: Pneumonia type: due to unspecified organism Laterality: unspecified laterality Lung location: unspecified part of lung Qualified Code(s): J18.9 - Pneumonia, unspecified organism Is this a current diagnosis for this admission?: Yes - Notes Notes: Acute respiratory failure with hypoxemia and hypercarbia: Possibly related to underlying COPD, pneumonitis, with some contribution from CHF. Agree with oxygenation and artificial ventilation. Recommend intermittent IV Lasix. Congestive heart failure: Patient has a history of it. At this time, patient seems to be relatively euvolemic to slightly fluid overloaded. As blood pressure would support, intermittent Lasix intravenously is being recommended to keep patient on the dry side. COPD: Agree with mechanical ventilation and oxygenation. Diabetes: Recommend good control of blood sugar but avoid any hypo-or hyperglycemia. Frequent ventricular ectopy: Have ordered a 2D echo. Recommend low-dose beta- david therapy as tolerated by her pulmonary and blood pressure problems. Further plans after 2D echo. In the meantime maintain good oxygenation, maintain electrolytes within normal limits. Tobacco dependency: Currently patient not smoking as he is intubated. Pneumonia: Agree with broad-spectrum antibiotics. With leave management to anesthesiologist and cement paver. - Time Time Spent: 30 to 50 Minutes - CODE STATUS was discussed, patient remains full code. Surrogate decision-maker unchanged. Multiple medical problems were addressed. More than 50% of the time spent coordinating care, discussing management plans with involved caregivers. Management plans discussed with involved personnels. Medical decision making was of moderate to high complexity , patient's has multiple comorbidities. Medications reviewed and adjusted accordingly: Yes
[2018-03-13] MEDS: VANCOMYCIN HCL 1,250 MG in DEXTROSE 5%-WATER 250 ML IV SCH (21:06)
[2018-03-13] MEDS: LEVALBUTEROL HCL NEB 1.25 MG/3 ML AMPUL NEB PRN (23:54)
[2018-03-14] MEDS: IPRATROPIUM/ALBUTEROL 0.5-2.5 MG/3 ML AMPUL NEB SCH ×4 (01:34→19:58)
[2018-03-14] MEDS: ACETAMINOPHEN 325 MG TABLET PO PRN (01:35)
[2018-03-14] MEDS: PROPOFOL 1,000 MG/100 ML INFUS..BTL IV PRN ×4 (03:29→18:55)
[2018-03-14 04:07] LABS: ABSOLUTE LYMPHOCYTES (AUTO) 0.8 10^3/uL (0.5-4.7); ABSOLUTE MONOCYTES (AUTO) 0.4 10^3/uL (0.1-1.4); ABSOLUTE NEUT (AUTO) 13.2 10^3/uL (1.7-8.2); BASOPHILS % (AUTO) 0.2 % (0-2); HEMATOCRIT 35.4 % (36.0-47.0); HEMOGLOBIN 11.9 g/dL (12.0-15.5); LYMPHOCYTES % (AUTO) 5.4 % (13-45); MEAN CORPUSCULAR HEMOGLOBIN 29.8 pg (27.0-33.4); MEAN CORPUSCULAR HGB CONC 33.7 g/dL (32.0-36.0); MEAN CORPUSCULAR VOLUME 88 fl (80-97); MONOCYTES % (AUTO) 2.5 % (3-13); PLATELET COUNT 324 10^3/uL (150-450); RED BLOOD COUNT 4.01 10^6/uL (3.72-5.28); RED CELL DISTRIBUTION WIDTH 14.1 % (11.5-14.0); SEGMENTED NEUTROPHILS % (AUTO) 91.9 % (42-78); TOTAL CELLS COUNTED % (AUTO) 100 %; WHITE BLOOD COUNT 14.3 10^3/uL (4.0-10.5)
[2018-03-14 04:15] LABS: ANION GAP 9 (5-19); BLOOD UREA NITROGEN 20 mg/dL (7-20); CARBON DIOXIDE 21 mmol/L (22-30); CHLORIDE 109 mmol/L (98-107); GLUCOSE 313 mg/dL (75-110); POTASSIUM 3.9 mmol/L (3.6-5.0); SODIUM 138.6 mmol/L (137-145)
[2018-03-14 05:47] LABS: ARTERIAL BLOOD H2CO3 1.02 mmol/L (1.05-1.35); ARTERIAL BLOOD HCO3 21.7 mmol/L (20-24); ARTERIAL BLOOD PCO2 33.8 mmHg (35-45); ARTERIAL BLOOD PH 7.43 (7.35-7.45); ARTERIAL BLOOD PO2 63.5 mmHg (80-100); ARTERIAL BLOOD TOTAL CO2 22.8 mmol/L (21-25)
[2018-03-14 05:48] LABS: ARTERIAL BLOOD FIO2 30%
[2018-03-14] MEDS: PIPERACILLIN SODIUM/TAZOBACTAM 4.5 GM in NORMAL SALINE 100 ML IV SCH ×3 (06:38→18:55)
[2018-03-14] MEDS: INSULIN LISPRO 100 UNIT/ML 3 ML VIAL SUBCUT PRN ×2 (06:38→15:35)
[2018-03-14] MEDS: METHYLPREDNISOLONE INJ 125 MG/2 ML SDV IV SCH ×3 (06:39→21:31)
[2018-03-14] MEDS: HEPARIN SOD (PORCINE) 5,000 UNIT/ML 1 ML SYRINGE SUBCUT SCH ×3 (06:39→21:53)
[2018-03-14] MEDS: BUDESONIDE NEB 0.5 MG/2 ML AMPUL NEB SCH ×2 (08:13→19:58)
--- NOTE | 2018-03-14 08:18 | RADIOLOGY REPORT (SQ) ---
EXAM DESCRIPTION: CHEST SINGLE VIEW COMPLETED DATE/TIME: 03/14/2018 7:18 am REASON FOR STUDY: resp fail COMPARISON: 03/13/2018. EXAM PARAMETERS: NUMBER OF VIEWS: One view. TECHNIQUE: Single frontal radiographic view of the chest acquired. RADIATION DOSE: NA LIMITATIONS: None. FINDINGS: LUNGS AND PLEURA: No acute infiltrates or effusions. MEDIASTINUM AND HILAR STRUCTURES: No masses. Contour normal. HEART AND VASCULAR STRUCTURES: The heart is normal with normal pulmonary vasculature. BONES: No acute findings. HARDWARE: None in the chest. OTHER: Endotracheal tube above aleah. NG tube overlying stomach. Chest leads in place. IMPRESSION: No acute disease. TECHNICAL DOCUMENTATION: JOB ID: [id number] [employer]- All Rights Reserved Reading location - IP/workstation name: [email or web address]
[2018-03-14] MEDS: VANCOMYCIN HCL 1,250 MG in DEXTROSE 5%-WATER 250 ML IV SCH ×2 (08:19→21:30)
[2018-03-14] MEDS: MIDAZOLAM HCL 50 MG/100 ML RTUINJ IV PRN ×2 (08:20→21:23)
[2018-03-14] MEDS: PANTOPRAZOLE SODIUM 40 MG VIAL IV SCH (10:30)
--- NOTE | 2018-03-14 12:34 | PDOC PROGRESS REPORT ---
Subjective Progress Note for:: 03/14/18 Subjective:: Patient about the same and has made very little progress. There is no significant change in general condition. Patient responsiveness is somewhat better. Patient remains intubated, sedated, patient however looks comfortable and in acute distress. Telemetry strips reviewed. Patient continues with frequent PVCs. Medications reviewed. Reason For Visit: ACUTE HYPOXIC RESPIRATORY FAILURE Physical Exam Vital Signs: Temp Pulse Resp BP Pulse Ox 99.5 F 86 24 H 137/101 H 96 03/14/18 10:09 03/14/18 08:13 03/14/18 10:09 03/14/18 10:09 03/14/18 10:09 Intake & Output 03/13/18 03/14/18 03/15/18 06:59 06:59 06:59 Intake Total 1703 2124 364 Output Total 1520 1919 275 Balance 183 205 89 Weight 89.8 kg 92 kg Exam: GENERAL: well-nourished and in no acute distress. Patient is intubated and sedated. Orientation cannot be checked HEAD: Atraumatic, normocephalic. EYES: Pupils equal round and reactive to light, extraocular movements could not be checked, sclera anicteric, conjunctiva are normal. ENT: TMs normal, nares patent, oropharynx clear without exudates. Moist mucous membranes. No oral ulcerations or bleeding gums noted NECK: supple without lymphadenopathy or JVD. Trachea is central. No cervical or axillary lymphadenopathy noted. Carotids are 2+ LUNGS: Breath sounds mostly clear to auscultation patient is noted to have bibasal crackles at the extreme bases CHEST: Palpation of the chest wall shows no significant chest wall tenderness or abnormalities. HEART: [place], No PSH, 2/6 IVAN aortic area, 1/6 gee systolic murmur mitral area , no rubs or gallops. ABDOMEN: Soft, no significant tenderness appreciated, normoactive bowel sounds. No guarding, no rebound. No rigidity noted . No masses appreciated. EXTREMITIES: Pedal pulses are 1-2+, no calf tenderness noted, 1+ pedal edema noted. No clubbing or cyanosis. NEUROLOGICAL: The patient cannot participate in the neurological exam but no facial asymmetry noted. Extremities slightly hypotonic PSYCH: This cannot be evaluated. Patient cannot participate. SKIN: No significant ecchymosis, rash, or signs of pruritus noted. MUSCULOSKELETAL EXAM: No significant joint swelling noted. Patient cannot participate in musculoskeletal exam Results Laboratory Results: 03/14/18 03:43 03/14/18 03:43 03/13/18 03/13/18 03/14/18 17:00 17:00 03:43 WBC 14.3 H RBC 4.01 Hgb 11.9 L Hct 35.4 L MCV 88 MCH 29.8 MCHC 33.7 RDW 14.1 H Plt Count 324 Seg Neutrophils % 91.9 H Lymphocytes % 5.4 L Monocytes % 2.5 L Eosinophils % 0.0 Basophils % 0.2 Absolute Neutrophils 13.2 H Absolute Lymphocytes 0.8 Absolute Monocytes 0.4 Absolute Eosinophils 0.0 Absolute Basophils 0.0 Carbonic Acid HCO3/H2CO3 Ratio ABG pH ABG pCO2 ABG pO2 ABG HCO3 ABG O2 Saturation ABG Base Excess FiO2 Sodium Potassium 3.9 Chloride Carbon Dioxide Anion Gap BUN Creatinine Est GFR ( Amer) Est GFR (Non-Af Amer) Glucose Calcium Magnesium 2.2 Free T4 1.11 Free T3 pg/mL 2.68 L 03/14/18 03/14/18 03:43 05:30 WBC RBC Hgb Hct MCV MCH MCHC RDW Plt Count Seg Neutrophils % Lymphocytes % Monocytes % Eosinophils % Basophils % Absolute Neutrophils Absolute Lymphocytes Absolute Monocytes Absolute Eosinophils Absolute Basophils Carbonic Acid 1.02 L HCO3/H2CO3 Ratio 21:1 ABG pH 7.43 ABG pCO2 33.8 L ABG pO2 63.5 L ABG HCO3 21.7 ABG O2 Saturation 93.0 L ABG Base Excess -2.0 FiO2 30% Sodium 138.6 Potassium 3.9 Chloride 109 H Carbon Dioxide 21 L Anion Gap 9 BUN 20 Creatinine 0.61 Est GFR ( Amer) > 60 Est GFR (Non-Af Amer) > 60 Glucose 313 H Calcium 9.0 Magnesium 2.3 Free T4 Free T3 pg/mL 03/12/18 00:30 Bunch Catheter Urine Culture - Final NO GROWTH 2 DAYS 03/12/18 03/12/18 03:59 03:59 Troponin I 0.054 NT-Pro-B Natriuret Pep 3480 H Impressions: Chest X-Ray 03/14/18 06:00 IMPRESSION: No acute disease. Assessment & Plan - Diagnosis (1) Acute respiratory failure with hypoxia and hypercapnia Is this a current diagnosis for this admission?: Yes (2) CHF (congestive heart failure) Is this a current diagnosis for this admission?: Yes (3) COPD (chronic obstructive pulmonary disease) Qualifiers: COPD type: unspecified COPD Qualified Code(s): J44.9 - Chronic obstructive pulmonary disease, unspecified Is this a current diagnosis for this admission?: Yes (4) Diabetes mellitus type 2 in obese Is this a current diagnosis for this admission?: Yes (5) Frequent PVCs Is this a current diagnosis for this admission?: Yes (6) Tobacco dependence Is this a current diagnosis for this admission?: Yes (7) Pneumonia Qualifiers: Pneumonia type: due to unspecified organism Laterality: unspecified laterality Lung location: unspecified part of lung Qualified Code(s): J18.9 - Pneumonia, unspecified organism Is this a current diagnosis for this admission?: Yes - Notes Notes: No significant change in patient's condition. Remains intubated but noted to be more responsive. 2D echo shows severely depressed LVEF. Will add Ranexa to patient's regimen. Could use amiodarone bolus and drip protocol, if patient has any sustained ventricular arrhythmias. Acute respiratory failure with hypoxemia and hypercarbia: Possibly related to underlying COPD, pneumonitis, with some contribution from CHF. Agree with oxygenation and artificial ventilation. Recommend intermittent IV Lasix. Congestive heart failure: Patient has a history of it. At this time, patient seems to be relatively euvolemic to slightly fluid overloaded. As blood pressure would support, intermittent Lasix intravenously is being recommended to keep patient on the dry side. COPD: Agree with mechanical ventilation and oxygenation. Diabetes: Recommend good control of blood sugar but avoid any hypo-or hyperglycemia. Frequent ventricular ectopy: Have ordered a 2D echo. Recommend low-dose beta- david therapy as tolerated by her pulmonary and blood pressure problems. Further plans after 2D echo. In the meantime maintain good oxygenation, maintain electrolytes within normal limits. Tobacco dependency: Currently patient not smoking as he is intubated. Pneumonia: Agree with broad-spectrum antibiotics. With leave management to health promotion coordinator and stain maker. - Time Time with patient: Greater than 35 minutes - CODE STATUS was discussed, patient remains full code. Surrogate decision-maker unchanged. Multiple medical problems were addressed. More than 50% of the time spent coordinating care, discussing management plans with involved caregivers. Management plans discussed with involved personnels. Medical decision making was of moderate to high complexity, patient's has multiple comorbidities. Medications reviewed and adjusted accordingly: Yes
[2018-03-14] MEDS ORDERED: DEXTROSE 40% GEL 15 GM TUBE PO PRN ×2 (14:19)
[2018-03-14] MEDS ORDERED: DEXTROSE 50%-WATER 25 GM/50 ML DISP.SYRIN IV PRN ×2 (14:19)
[2018-03-14] MEDS ORDERED: GLUCAGON,HUMAN RECOMB 1 MG INJ IM PRN (14:19)
--- NOTE | 2018-03-14 14:45 | PDOC PROGRESS REPORT ---
Subjective Subjective:: THELMA ARANGO is a 63 year old femaleWith history of COPD, intubated at least twice in the past, came to the ED c/o progressive SOB. Intubated in ED. Per daughter's she was standing at the counter, she had dinner and she went to her bathroom, suddenly they heard that she sreamed "help"; and the found her side with her. Prior day was feeling well. She was bagged upon arrival with subsequent intubation, as had agonal respirations and cyanosis with severe bilateral decreased air movement. Patient from [place] and does not have any PCP. Patient is active smoker 1 pack/day. Initial ABG 7.13/64/110 No acute events overnight. He was successfully weaned off of vasopressors. Patient currently is on Versed and to propofol. Attempt was made to wean patient off of Versed however she gets very anxious and tachypneic Reason For Visit: ACUTE HYPOXIC RESPIRATORY FAILURE Physical Exam Vital Signs: Temp Pulse Resp BP Pulse Ox 99.5 F 86 24 H 137/101 H 96 03/14/18 10:09 03/14/18 08:13 03/14/18 10:09 03/14/18 10:09 03/14/18 10:09 Intake & Output 03/13/18 03/14/18 03/15/18 06:59 06:59 06:59 Intake Total 1703 2124 364 Output Total 1520 1919 375 Balance 183 205 -11 Weight 89.8 kg 92 kg General appearance: PRESENT: well-developed, well-nourished, other - Intubated and sedated Head exam: PRESENT: atraumatic, normocephalic Eye exam: PRESENT: conjunctiva pink, PERRLA. ABSENT: scleral icterus Ear exam: PRESENT: normal external ear exam Mouth exam: PRESENT: moist Neck exam: ABSENT: carotid bruit, JVD, lymphadenopathy, thyromegaly Respiratory exam: PRESENT: clear to auscultation sandor. ABSENT: rales, rhonchi, wheezes Cardiovascular exam: PRESENT: RRR. ABSENT: diastolic murmur, rubs, systolic murmur Pulses: PRESENT: normal dorsalis pedis pul Vascular exam: PRESENT: normal capillary refill GI/Abdominal exam: PRESENT: normal bowel sounds, soft. ABSENT: distended, guarding, mass, organolmegaly, rebound, tenderness Rectal exam: PRESENT: deferred Extremities exam: PRESENT: full ROM. ABSENT: calf tenderness, clubbing, pedal edema Neurological exam: PRESENT: other - Intubated and sedated. Skin exam: PRESENT: dry, intact, warm. ABSENT: cyanosis, rash Results Laboratory Results: 03/14/18 03:43 03/14/18 03:43 03/13/18 03/13/18 03/14/18 17:00 17:00 03:43 WBC 14.3 H RBC 4.01 Hgb 11.9 L Hct 35.4 L MCV 88 MCH 29.8 MCHC 33.7 RDW 14.1 H Plt Count 324 Seg Neutrophils % 91.9 H Lymphocytes % 5.4 L Monocytes % 2.5 L Eosinophils % 0.0 Basophils % 0.2 Absolute Neutrophils 13.2 H Absolute Lymphocytes 0.8 Absolute Monocytes 0.4 Absolute Eosinophils 0.0 Absolute Basophils 0.0 Carbonic Acid HCO3/H2CO3 Ratio ABG pH ABG pCO2 ABG pO2 ABG HCO3 ABG O2 Saturation ABG Base Excess FiO2 Sodium Potassium 3.9 Chloride Carbon Dioxide Anion Gap BUN Creatinine Est GFR ( Amer) Est GFR (Non-Af Amer) Glucose Calcium Magnesium 2.2 Free T4 1.11 Free T3 pg/mL 2.68 L 03/14/18 03/14/18 03:43 05:30 WBC RBC Hgb Hct MCV MCH MCHC RDW Plt Count Seg Neutrophils % Lymphocytes % Monocytes % Eosinophils % Basophils % Absolute Neutrophils Absolute Lymphocytes Absolute Monocytes Absolute Eosinophils Absolute Basophils Carbonic Acid 1.02 L HCO3/H2CO3 Ratio 21:1 ABG pH 7.43 ABG pCO2 33.8 L ABG pO2 63.5 L ABG HCO3 21.7 ABG O2 Saturation 93.0 L ABG Base Excess -2.0 FiO2 30% Sodium 138.6 Potassium 3.9 Chloride 109 H Carbon Dioxide 21 L Anion Gap 9 BUN 20 Creatinine 0.61 Est GFR ( Amer) > 60 Est GFR (Non-Af Amer) > 60 Glucose 313 H Calcium 9.0 Magnesium 2.3 Free T4 Free T3 pg/mL 03/12/18 00:30 Tracheal Aspirate Gram Stain - Final 03/12/18 00:30 Tracheal Aspirate Sputum Culture - Final Normal Marilee 03/12/18 00:30 Bunch Catheter Urine Culture - Final NO GROWTH 2 DAYS 03/12/18 03/12/18 03:59 03:59 Troponin I 0.054 NT-Pro-B Natriuret Pep 3480 H Impressions: Chest X-Ray 03/14/18 06:00 IMPRESSION: No acute disease. Assessment & Plan - Diagnosis (1) Acute respiratory failure with hypoxia and hypercapnia Is this a current diagnosis for this admission?: Yes Plan: Intubated and sedated. Continue ventilatory support, ABG CBC tomorrow. Patient had marked leukocytosis of 18,000 erythromycin was switched to vancomycin and Zosyn. White blood cells 14,000 today. Cultures pending (2) COPD (chronic obstructive pulmonary disease) Qualifiers: COPD type: unspecified COPD Qualified Code(s): J44.9 - Chronic obstructive pulmonary disease, unspecified Is this a current diagnosis for this admission?: Yes (3) Diabetes mellitus type 2 in obese Is this a current diagnosis for this admission?: Yes Plan: Started on Lantus 15 units nightly. Continue sliding scale. Diabetic and cardiac diet. Adjust dosage as needed (4) Elevated LFTs Is this a current diagnosis for this admission?: Yes Plan: No prior history. Hepatitis panel and liver ultrasound to rule out any hepatitis or cirrhosis. (5) Hypothyroidism Is this a current diagnosis for this admission?: Yes Plan: TSH is 6.21 which is mildly elevated her free T4 and T3. (6) Tobacco dependence Is this a current diagnosis for this admission?: Yes Plan: Place on nicotine patch. (7) Pneumonia Qualifiers: Pneumonia type: due to unspecified organism Laterality: unspecified laterality Lung location: unspecified part of lung Qualified Code(s): J18.9 - Pneumonia, unspecified organism Is this a current diagnosis for this admission?: Yes Plan: Patient has been having marked leukocytosis will start on empiric antibiotics cultures have been negative. (8) CHF (congestive heart failure) Is this a current diagnosis for this admission?: Yes Plan: However BNP was 3480 on admission. Pending 2D echo. We will start diuresis once blood pressures are stable. Currently euvolemic. Monitor volume status. (9) Frequent PVCs Is this a current diagnosis for this admission?: Yes Plan: Start on ranolazine, and Entresto, digoxin by cardiology. Pending 2D echo.
[2018-03-14] MEDS: NORMAL SALINE 1000 ML 1,000 ML IV PRN (14:52)
[2018-03-14] MEDS: RANOLAZINE 500 MG TAB.SR.12H PO SCH ×2 (15:22→22:07)
[2018-03-14] MEDS: DIGOXIN 0.125 MG TABLET PO SCH (15:26)
[2018-03-14] MEDS: SACUBITRIL/VALSARTAN 24 MG/26 MG TABLET PO SCH ×2 (15:26→17:10)
[2018-03-14] MEDS: SPIRONOLACTONE 25 MG TABLET PO SCH (15:26)
[2018-03-14] MEDS: ATORVASTATIN CALCIUM 40 MG TABLET PO SCH (22:07)
[2018-03-14] MEDS: INSULIN GLARGINE,HUM.REC.ANLOG 300 UNIT/3 ML INSULN.PEN SUBCUT SCH (22:10)
[2018-03-15] MEDS: PIPERACILLIN SODIUM/TAZOBACTAM 4.5 GM in NORMAL SALINE 100 ML IV SCH ×4 (00:46→18:11)
[2018-03-15] MEDS: INSULIN LISPRO 100 UNIT/ML 3 ML VIAL SUBCUT PRN ×3 (00:56→17:39)
[2018-03-15] MEDS: PROPOFOL 1,000 MG/100 ML INFUS..BTL IV PRN ×5 (00:57→19:47)
[2018-03-15] MEDS: IPRATROPIUM/ALBUTEROL 0.5-2.5 MG/3 ML AMPUL NEB SCH ×4 (02:52→19:57)
[2018-03-15 03:58] LABS: ABSOLUTE LYMPHOCYTES (AUTO) 1.2 10^3/uL (0.5-4.7); ABSOLUTE MONOCYTES (AUTO) 0.4 10^3/uL (0.1-1.4); ABSOLUTE NEUT (AUTO) 10.8 10^3/uL (1.7-8.2); BASOPHILS % (AUTO) 0.1 % (0-2); HEMOGLOBIN 11.9 g/dL (12.0-15.5); LYMPHOCYTES % (AUTO) 9.4 % (13-45); MEAN CORPUSCULAR HEMOGLOBIN 29.6 pg (27.0-33.4); MEAN CORPUSCULAR HGB CONC 33.2 g/dL (32.0-36.0); MEAN CORPUSCULAR VOLUME 89 fl (80-97); MONOCYTES % (AUTO) 3.5 % (3-13); PLATELET COUNT 293 10^3/uL (150-450); RED BLOOD COUNT 4.04 10^6/uL (3.72-5.28); RED CELL DISTRIBUTION WIDTH 14.1 % (11.5-14.0); TOTAL CELLS COUNTED % (AUTO) 100 %; WHITE BLOOD COUNT 12.4 10^3/uL (4.0-10.5)
[2018-03-15 04:44] LABS: ANION GAP 9 (5-19); BLOOD UREA NITROGEN 23 mg/dL (7-20); CALCIUM 8.9 mg/dL (8.4-10.2); CARBON DIOXIDE 21 mmol/L (22-30); CHLORIDE 110 mmol/L (98-107); GLUCOSE 332 mg/dL (75-110); POTASSIUM 4.2 mmol/L (3.6-5.0); SODIUM 139.9 mmol/L (137-145)
[2018-03-15 05:18] LABS: ARTERIAL BLOOD BASE EXCESS -1.2 mmol/L; ARTERIAL BLOOD H2CO3 1.15 mmol/L (1.05-1.35); ARTERIAL BLOOD HCO3 23.3 mmol/L (20-24); ARTERIAL BLOOD O2 SATURATION 94.5 % (94-98); ARTERIAL BLOOD PCO2 38.2 mmHg (35-45); ARTERIAL BLOOD PO2 71.3 mmHg (80-100); ARTERIAL BLOOD TOTAL CO2 24.5 mmol/L (21-25)
[2018-03-15 05:22] LABS: ARTERIAL BLOOD FIO2 30%
[2018-03-15] MEDS: METHYLPREDNISOLONE INJ 125 MG/2 ML SDV IV SCH ×3 (05:23→22:55)
[2018-03-15] MEDS: HEPARIN SOD (PORCINE) 5,000 UNIT/ML 1 ML SYRINGE SUBCUT SCH ×3 (05:24→22:56)
[2018-03-15] MEDS: ACETAMINOPHEN 325 MG TABLET PO PRN (05:41)
[2018-03-15] MEDS: MIDAZOLAM HCL 50 MG/100 ML RTUINJ IV PRN ×2 (05:48→19:47)
[2018-03-15 07:38] LABS: HEPATITIS A AB IGM Negative (Negative); HEPATITIS B CORE AB IGM Negative (Negative); HEPATITS B SURFACE ANTIGEN Negative (Negative)
--- NOTE | 2018-03-15 08:16 | RADIOLOGY REPORT (SQ) ---
EXAM DESCRIPTION: CHEST SINGLE VIEW COMPLETED DATE/TIME: 03/15/2018 7:10 am REASON FOR STUDY: resp failure COMPARISON: None. EXAM PARAMETERS: NUMBER OF VIEWS: One view. TECHNIQUE: Single frontal radiographic view of the chest acquired. RADIATION DOSE: NA LIMITATIONS: None. FINDINGS: LUNGS AND PLEURA: No acute infiltrates or effusions. MEDIASTINUM AND HILAR STRUCTURES: No masses. Contour normal. HEART AND VASCULAR STRUCTURES: The heart is normal. The pulmonary vasculature is normal. BONES: No acute findings. HARDWARE: Endotracheal tube above aleah. . OTHER: NG tube overlying stomach. IMPRESSION: No acute disease. TECHNICAL DOCUMENTATION: JOB ID: [id number] [employer] All Rights Reserved Reading location - IP/workstation name: [email or web address]
[2018-03-15] MEDS: BUDESONIDE NEB 0.5 MG/2 ML AMPUL NEB SCH ×2 (08:48→19:57)
[2018-03-15 09:10] LABS: VANCOMYCIN,TROUGH 11.9 ug/mL (5.0-20.0)
[2018-03-15] MEDS: NORMAL SALINE 1000 ML 1,000 ML IV PRN (09:41)
[2018-03-15] MEDS ORDERED: METOPROLOL TARTRATE 25 MG TABLET PO SCH (10:00)
[2018-03-15] MEDS: PANTOPRAZOLE SODIUM 40 MG VIAL IV SCH (10:12)
[2018-03-15] MEDS: VANCOMYCIN HCL 1,250 MG in DEXTROSE 5%-WATER 250 ML IV SCH (10:12)
[2018-03-15] MEDS: DIGOXIN 0.125 MG TABLET PO SCH (10:13)
[2018-03-15] MEDS: ASPIRIN 81 MG TABLET, CHEWABLE PO SCH (10:13)
[2018-03-15] MEDS: FUROSEMIDE INJ/PF 20 MG/2 ML SDV IV SCH (10:14)
[2018-03-15] MEDS: SPIRONOLACTONE 25 MG TABLET PO SCH (10:26)
[2018-03-15 11:20] LABS: HEPATITIS C VIRUS ANTIBODY <0.1 s/co ratio (0.0-0.9)
--- NOTE | 2018-03-15 11:22 | PDOC PROGRESS REPORT ---
Subjective Subjective:: THELMA ARANGO is a 63 year old femaleWith history of COPD, intubated at least twice in the past, came to the ED c/o progressive SOB. Intubated in ED. Per daughter's she was standing at the counter, she had dinner and she went to her bathroom, suddenly they heard that she sreamed "help"; and the found her side with her. Prior day was feeling well. She was bagged upon arrival with subsequent intubation, as had agonal respirations and cyanosis with severe bilateral decreased air movement. Patient from [place] and does not have any PCP. Patient is active smoker 1 pack/day. Initial ABG 7.13/64/110 No acute events overnight. Naeem was not given due to the fact that it cannot be crushed. NG tube in place. Patient currently is on Versed and to propofol. Attempt was made to wean patient off of Versed however she gets very anxious and tachypneic Reason For Visit: ACUTE HYPOXIC RESPIRATORY FAILURE Physical Exam Vital Signs: Temp Pulse Resp BP Pulse Ox 99.3 F 90 21 H 154/87 H 93 03/15/18 10:20 03/15/18 10:00 03/15/18 10:20 03/15/18 10:20 03/15/18 10:20 Intake & Output 03/14/18 03/15/18 03/16/18 06:59 06:59 06:59 Intake Total 2124 3335 121 Output Total 1919 1985 275 Balance 205 1350 -154 Weight 92 kg 92.9 kg General appearance: PRESENT: no acute distress, well-developed, well-nourished Head exam: PRESENT: atraumatic, normocephalic Eye exam: PRESENT: conjunctiva pink, EOMI. ABSENT: scleral icterus Ear exam: PRESENT: normal external ear exam Mouth exam: PRESENT: moist, tongue midline Neck exam: ABSENT: carotid bruit, JVD, lymphadenopathy, thyromegaly Respiratory exam: PRESENT: clear to auscultation sandor. ABSENT: rales, rhonchi, wheezes Cardiovascular exam: PRESENT: RRR. ABSENT: diastolic murmur, rubs, systolic murmur Pulses: PRESENT: normal dorsalis pedis pul Vascular exam: PRESENT: normal capillary refill GI/Abdominal exam: PRESENT: normal bowel sounds, rebound, soft, tenderness. ABSENT: distended, guarding, mass, organolmegaly Rectal exam: PRESENT: deferred Extremities exam: PRESENT: full ROM, pedal edema, other. ABSENT: calf tenderness, clubbing Neurological exam: PRESENT: other - Intubated and sedated.. ABSENT: motor sensory deficit Psychiatric exam: ABSENT: homicidal ideation, suicidal ideation Skin exam: PRESENT: dry, intact, warm. ABSENT: cyanosis, rash Results Laboratory Results: 03/15/18 03:47 03/15/18 03:47 03/15/18 03/15/18 03/15/18 03:47 03:47 05:09 WBC 12.4 H RBC 4.04 Hgb 11.9 L Hct 36.0 MCV 89 MCH 29.6 MCHC 33.2 RDW 14.1 H Plt Count 293 Seg Neutrophils % 87.0 H Lymphocytes % 9.4 L Monocytes % 3.5 Eosinophils % 0.0 Basophils % 0.1 Absolute Neutrophils 10.8 H Absolute Lymphocytes 1.2 Absolute Monocytes 0.4 Absolute Eosinophils 0.0 Absolute Basophils 0.0 Carbonic Acid 1.15 HCO3/H2CO3 Ratio 20:1 ABG pH 7.40 ABG pCO2 38.2 ABG pO2 71.3 L ABG HCO3 23.3 ABG O2 Saturation 94.5 ABG Base Excess -1.2 FiO2 30% Sodium 139.9 Potassium 4.2 Chloride 110 H Carbon Dioxide 21 L Anion Gap 9 BUN 23 H Creatinine 0.66 Est GFR ( Amer) > 60 Est GFR (Non-Af Amer) > 60 Glucose 332 H Calcium 8.9 Magnesium 2.5 H 03/13/18 09:51 Catheterized Urine Urine Culture - Final NO GROWTH 2 DAYS 03/13/18 09:51 Tracheal Aspirate Gram Stain - Final 03/13/18 09:51 Tracheal Aspirate Sputum Culture - Final 03/12/18 00:30 Tracheal Aspirate Gram Stain - Final 03/12/18 00:30 Tracheal Aspirate Sputum Culture - Final Normal Marilee 03/12/18 00:30 Bunch Catheter Urine Culture - Final NO GROWTH 2 DAYS 03/12/18 03/12/18 03:59 03:59 Troponin I 0.054 NT-Pro-B Natriuret Pep 3480 H Impressions: Chest X-Ray 03/15/18 06:00 IMPRESSION: No acute disease. Assessment & Plan - Diagnosis (1) Acute respiratory failure with hypoxia and hypercapnia Is this a current diagnosis for this admission?: Yes Plan: Intubated and sedated. ABG improved. Continue vancomycin and Zosyn and ventilatory support. ABG, CBC tomorrow. Cultures pending (2) COPD (chronic obstructive pulmonary disease) Qualifiers: COPD type: unspecified COPD Qualified Code(s): J44.9 - Chronic obstructive pulmonary disease, unspecified Is this a current diagnosis for this admission?: Yes Plan: Continue ventilatory management, steroids. (3) Diabetes mellitus type 2 in obese Is this a current diagnosis for this admission?: Yes Plan: Not controlled. Increase Lantus to 25 nightly. Continue sliding scale. Diabetic and cardiac diet. Adjust dosage as needed (4) Elevated LFTs Is this a current diagnosis for this admission?: Yes Plan: No prior history. Obtain hepatitis panel and liver ultrasound. (5) Hypothyroidism Is this a current diagnosis for this admission?: Yes Plan: TSH is 6.21. T3/T4 within normal limits (6) Tobacco dependence Is this a current diagnosis for this admission?: Yes Plan: Place on nicotine patch. (7) Pneumonia Qualifiers: Pneumonia type: due to unspecified organism Laterality: unspecified laterality Lung location: unspecified part of lung Qualified Code(s): J18.9 - Pneumonia, unspecified organism Is this a current diagnosis for this admission?: Yes Plan: Patient has been having marked leukocytosis. Continue Vanc/Zosyn. Cultures negative. (8) CHF (congestive heart failure) Is this a current diagnosis for this admission?: Yes Plan: Ejection fraction 20-25%, systolic and diastolic dysfunction. Continue Naeem , Aldactone, aspirin, statin, Coreg, digoxin and Lasix. Notes. Naeem has been held because patient has an NG tube and it cannot be crushed. (9) Frequent PVCs Is this a current diagnosis for this admission?: Yes Plan: Continue low-dose Coreg, digoxin. Pending digoxin level. (10) Hypertension Is this a current diagnosis for this admission?: Yes Plan: Lasix 20 IV twice daily, Coreg 6.25 twice daily, Aldactone, Entresto
[2018-03-15] MEDS: VANCOMYCIN HCL 1,000 MG in DEXTROSE 5%-WATER 250 ML IV SCH (18:11)
[2018-03-15] MEDS: CARVEDILOL 6.25 MG TABLET NG SCH (18:11)
[2018-03-15] MEDS: ATORVASTATIN CALCIUM 40 MG TABLET PO SCH (22:55)
[2018-03-15] MEDS: INSULIN GLARGINE,HUM.REC.ANLOG 300 UNIT/3 ML INSULN.PEN SUBCUT SCH (22:56)
[2018-03-16] MEDS: PROPOFOL 1,000 MG/100 ML INFUS..BTL IV PRN ×6 (00:37→23:42)
[2018-03-16] MEDS: PIPERACILLIN SODIUM/TAZOBACTAM 4.5 GM in NORMAL SALINE 100 ML IV SCH ×5 (00:37→23:42)
[2018-03-16] MEDS: INSULIN LISPRO 100 UNIT/ML 3 ML VIAL SUBCUT PRN ×5 (00:45→23:58)
[2018-03-16] MEDS: IPRATROPIUM/ALBUTEROL 0.5-2.5 MG/3 ML AMPUL NEB SCH ×4 (01:00→20:38)
[2018-03-16] MEDS: VANCOMYCIN HCL 1,000 MG in DEXTROSE 5%-WATER 250 ML IV SCH ×3 (01:34→17:19)
[2018-03-16 04:26] LABS: ALANINE AMINOTRANSFERASE 36 U/L (9-52); ALBUMIN 3.1 g/dL (3.5-5.0); ALKALINE PHOSPHATASE 62 U/L (38-126); ANION GAP 8 (5-19); ASPARTATE AMINO TRANSFERASE 9 U/L (14-36); BILIRUBIN,DIRECT 0.4 mg/dL (0.0-0.4); BILIRUBIN,TOTAL 0.4 mg/dL (0.2-1.3); BLOOD UREA NITROGEN 25 mg/dL (7-20); CALCIUM 8.7 mg/dL (8.4-10.2); CARBON DIOXIDE 22 mmol/L (22-30); CHLORIDE 110 mmol/L (98-107); GLUCOSE 361 mg/dL (75-110); POTASSIUM 4.3 mmol/L (3.6-5.0); SODIUM 139.5 mmol/L (137-145); TOTAL PROTEIN 5.7 g/dL (6.3-8.2)
[2018-03-16 04:34] LABS: ABSOLUTE LYMPHOCYTES (AUTO) 1.1 10^3/uL (0.5-4.7); ABSOLUTE MONOCYTES (AUTO) 0.4 10^3/uL (0.1-1.4); ABSOLUTE NEUT (AUTO) 8.7 10^3/uL (1.7-8.2); BASOPHILS % (AUTO) 0.1 % (0-2); HEMATOCRIT 35.7 % (36.0-47.0); HEMOGLOBIN 12.2 g/dL (12.0-15.5); MEAN CORPUSCULAR HEMOGLOBIN 30.3 pg (27.0-33.4); MEAN CORPUSCULAR VOLUME 89 fl (80-97); MONOCYTES % (AUTO) 3.5 % (3-13); PLATELET COUNT 281 10^3/uL (150-450); RED BLOOD COUNT 4.02 10^6/uL (3.72-5.28); SEGMENTED NEUTROPHILS % (AUTO) 85.4 % (42-78); TOTAL CELLS COUNTED % (AUTO) 100 %; WHITE BLOOD COUNT 10.2 10^3/uL (4.0-10.5)
[2018-03-16 05:11] LABS: ARTERIAL BLOOD BASE EXCESS -3.4 mmol/L; ARTERIAL BLOOD H2CO3 0.95 mmol/L (1.05-1.35); ARTERIAL BLOOD HCO3 20.2 mmol/L (20-24); ARTERIAL BLOOD O2 SATURATION 95.6 % (94-98); ARTERIAL BLOOD PCO2 31.5 mmHg (35-45); ARTERIAL BLOOD PH 7.42 (7.35-7.45); ARTERIAL BLOOD PO2 75.5 mmHg (80-100); ARTERIAL BLOOD TOTAL CO2 21.1 mmol/L (21-25)
[2018-03-16 05:13] LABS: ARTERIAL BLOOD FIO2 30%
[2018-03-16] MEDS: NORMAL SALINE 1000 ML 1,000 ML IV PRN ×2 (05:26→23:58)
[2018-03-16] MEDS: CARVEDILOL 6.25 MG TABLET NG SCH ×2 (05:45→17:19)
[2018-03-16] MEDS: METHYLPREDNISOLONE INJ 125 MG/2 ML SDV IV SCH ×3 (05:46→21:53)
[2018-03-16] MEDS: HEPARIN SOD (PORCINE) 5,000 UNIT/ML 1 ML SYRINGE SUBCUT SCH ×3 (05:54→21:56)
[2018-03-16] MEDS: BUDESONIDE NEB 0.5 MG/2 ML AMPUL NEB SCH ×2 (07:52→20:38)
[2018-03-16] MEDS ORDERED: PROMETHAZINE HCL INJ 25 MG/1 ML VIAL IV PRN (08:00)
--- NOTE | 2018-03-16 08:39 | RADIOLOGY REPORT (SQ) ---
EXAM DESCRIPTION: CHEST SINGLE VIEW COMPLETED DATE/TIME: 03/16/2018 7:11 am REASON FOR STUDY: Intubated COMPARISON: 03/15/2018 NUMBER OF VIEWS: One view. TECHNIQUE: Single frontal radiographic image of the chest acquired. LIMITATIONS: None. FINDINGS: LUNGS AND PLEURA: Stable appearance. Left basilar atelectasis. No pneumothorax. MEDIASTINUM AND HEART: Stable heart size and mediastinal structures. SUPPORT DEVICES: Appropriate location without change. BONY STRUCTURES: No acute findings. HARDWARE: None. OTHER: No other significant finding. IMPRESSION: STABLE APPEARANCE OF THE CHEST. SUPPORT DEVICES UNCHANGED. Reading location - IP/workstation name: [email or web address]
--- NOTE | 2018-03-16 08:59 | RADIOLOGY REPORT (SQ) ---
EXAM DESCRIPTION: U/S ABDOMEN LTD W/DOPPLER COMPLETED DATE/TIME: 03/16/2018 8:47 am REASON FOR STUDY: Elevated LFTs COMPARISON: None. TECHNIQUE: Dynamic and static grayscale images acquired of the abdomen and recorded on PACS. Additio nal selected color Doppler and spectral images recorded. LIMITATIONS: VENTILATOR PATIENT, portable study Midline bowel gas FINDINGS: PANCREAS: Midline pancreas unremarkable LIVER: No masses. Echotexture normal. LIVER VASCULATURE: Normal directional flow of the main portal vein and hepatic veins. GALLBLADDER: Not visualized ULTRASOUND-DETECTED SALAZAR'S SIGN: Negative. INTRAHEPATIC DUCTS AND COMMON DUCT: CBD and intrahepatic ducts normal caliber at the rickie hepatis. Distal common duct not well seen. INFERIOR VENA CAVA: Normal flow. AORTA: No aneurysm. RIGHT KIDNEY: Normal size. Normal echogenicity. No solid or suspicious masses. No hydronephrosis. No calcifications. PERITONEAL AND RIGHT PLEURAL SPACE: Trace right pleural effusion OTHER: No other significant findings. IMPRESSION: Gallbladder not visualized No intrahepatic biliary ductal dilatation. Common duct at the rickie hepatis normal caliber. Distal common duct not well seen due to duodenum gas TECHNICAL DOCUMENTATION: JOB ID: [id number] All Rights Reserved Reading location - IP/workstation name: [email or web address]
[2018-03-16] MEDS ORDERED: FUROSEMIDE INJ/PF 40 MG/4 ML SDV IV ONE (10:30)
[2018-03-16] MEDS: PANTOPRAZOLE SODIUM 40 MG VIAL IV SCH (10:36)
[2018-03-16] MEDS: VALSARTAN 40 MG TABLET PO SCH ×2 (10:38→21:54)
[2018-03-16] MEDS: DIGOXIN 0.125 MG TABLET PO SCH (10:38)
[2018-03-16] MEDS: SPIRONOLACTONE 25 MG TABLET PO SCH (10:39)
[2018-03-16] MEDS: ASPIRIN 81 MG TABLET, CHEWABLE PO SCH (10:39)
[2018-03-16] MEDS: FUROSEMIDE INJ/PF 20 MG/2 ML SDV IV SCH (10:40)
--- NOTE | 2018-03-16 11:58 | PDOC PROGRESS REPORT ---
Subjective Progress Note for:: 03/16/18 Subjective:: THELMA ARANGO is a 63 year old femaleWith history of COPD, intubated at least twice in the past, came to the ED c/o progressive SOB. Intubated in ED. Per daughter's she was standing at the counter, she had dinner and she went to her bathroom, suddenly they heard that she sreamed "help"; and the found her side with her. Prior day was feeling well. She was bagged upon arrival with subsequent intubation, as had agonal respirations and cyanosis with severe bilateral decreased air movement. Patient from [place] and does not have any PCP. Patient is active smoker 1 pack/day. Initial ABG 7.13/64/110 No acute events overnight. Naeem was not given due to the fact that it cannot be crushed. NG tube in place. Patient currently is on Versed and to propofol. Attempt has been made daily to wean patient off of Versed however she gets very anxious and tachypneic Reason For Visit: ACUTE HYPOXIC RESPIRATORY FAILURE Physical Exam Vital Signs: Temp Pulse Resp BP Pulse Ox 99.9 F 60 20 149/87 H 93 03/16/18 10:00 03/16/18 08:00 03/16/18 10:00 03/16/18 09:50 03/16/18 11:11 Intake & Output 03/15/18 03/16/18 03/17/18 06:59 06:59 06:59 Intake Total 3435 2677 350 Output Total 1985 3015 175 Balance 1450 -338 175 Weight 92.9 kg 95.4 kg General appearance: PRESENT: other - Intubated and sedated Respiratory exam: PRESENT: other - Bibasilar crackles.. ABSENT: rales, rhonchi , wheezes Cardiovascular exam: PRESENT: RRR. ABSENT: diastolic murmur, rubs, systolic murmur Pulses: PRESENT: normal dorsalis pedis pul GI/Abdominal exam: PRESENT: normal bowel sounds, soft. ABSENT: distended, guarding, mass, organolmegaly, rebound, tenderness Extremities exam: PRESENT: calf tenderness, clubbing, full ROM, +1 edema. ABSENT: pedal edema Neurological exam: PRESENT: other - Intubated and sedated. Results Laboratory Results: 03/16/18 03:42 03/16/18 03:42 03/16/18 03/16/18 03/16/18 03:42 03:42 04:43 WBC 10.2 RBC 4.02 Hgb 12.2 Hct 35.7 L MCV 89 MCH 30.3 MCHC 34.0 RDW 14.0 Plt Count 281 Seg Neutrophils % 85.4 H Lymphocytes % 11.0 L Monocytes % 3.5 Eosinophils % 0.0 Basophils % 0.1 Absolute Neutrophils 8.7 H Absolute Lymphocytes 1.1 Absolute Monocytes 0.4 Absolute Eosinophils 0.0 Absolute Basophils 0.0 Carbonic Acid 0.95 L HCO3/H2CO3 Ratio 21:1 ABG pH 7.42 ABG pCO2 31.5 L ABG pO2 75.5 L ABG HCO3 20.2 ABG O2 Saturation 95.6 ABG Base Excess -3.4 FiO2 30% Sodium 139.5 Potassium 4.3 Chloride 110 H Carbon Dioxide 22 Anion Gap 8 BUN 25 H Creatinine 0.69 Est GFR ( Amer) > 60 Est GFR (Non-Af Amer) > 60 Glucose 361 H Calcium 8.7 Magnesium 2.4 H Total Bilirubin 0.4 AST 9 L ALT 36 Alkaline Phosphatase 62 Total Protein 5.7 L Albumin 3.1 L 03/13/18 09:51 Catheterized Urine Urine Culture - Final NO GROWTH 2 DAYS 03/13/18 09:51 Tracheal Aspirate Gram Stain - Final 03/13/18 09:51 Tracheal Aspirate Sputum Culture - Final 03/12/18 03/12/18 03:59 03:59 Troponin I 0.054 NT-Pro-B Natriuret Pep 3480 H Impressions: Abdomen Ultrasound 03/16/18 00:00 IMPRESSION: Gallbladder not visualized No intrahepatic biliary ductal dilatation. Common duct at the rickie hepatis normal caliber. Distal common duct not well seen due to duodenum gas Chest X-Ray 03/16/18 06:00 IMPRESSION: STABLE APPEARANCE OF THE CHEST. SUPPORT DEVICES UNCHANGED. Assessment & Plan - Diagnosis (1) Acute respiratory failure with hypoxia and hypercapnia Is this a current diagnosis for this admission?: Yes Plan: Intubated and sedated. ET tube 3-4 cm above aleah. ABG improved. Continue vancomycin and Zosyn and ventilatory support. ABG, CBC tomorrow. Cultures pending (2) COPD (chronic obstructive pulmonary disease) Qualifiers: COPD type: unspecified COPD Qualified Code(s): J44.9 - Chronic obstructive pulmonary disease, unspecified Is this a current diagnosis for this admission?: Yes Plan: Continue ventilatory management, steroids. (3) Diabetes mellitus type 2 in obese Is this a current diagnosis for this admission?: Yes Plan: Not controlled. Increase Lantus to 25 nightly. Continue sliding scale. Diabetic and cardiac diet. Adjust dosage as needed (4) Elevated LFTs Is this a current diagnosis for this admission?: Yes Plan: AST ALT within normal limits. Hepatitis panel negative. Liver ultrasound negative for any sign of cirrhosis or masses. (5) Tobacco dependence Is this a current diagnosis for this admission?: Yes (6) Pneumonia Qualifiers: Pneumonia type: due to unspecified organism Laterality: unspecified laterality Lung location: unspecified part of lung Qualified Code(s): J18.9 - Pneumonia, unspecified organism Is this a current diagnosis for this admission?: Yes Plan: Leukocytosis improved.. Continue Vanc/Zosyn. Cultures negative. (7) CHF (congestive heart failure) Is this a current diagnosis for this admission?: Yes Plan: Ejection fraction 20-25%, systolic and diastolic dysfunction. Continue Naeem , Aldactone, aspirin, statin, Coreg, digoxin and increase Lasix to 40 mg IV twice daily. Notes. Naeem has been held because patient has an NG tube and it cannot be crushed. (8) Frequent PVCs Is this a current diagnosis for this admission?: Yes Plan: Continue low-dose Coreg, digoxin. Pending digoxin level. Cardiology on board (9) Hypertension Is this a current diagnosis for this admission?: Yes Plan: Lasix 40 IV twice daily, Coreg 6.25 twice daily, Aldactone, Entresto
[2018-03-16] MEDS: ACETAMINOPHEN 325 MG TABLET PO PRN (13:22)
[2018-03-16] MEDS: MIDAZOLAM HCL 50 MG/100 ML RTUINJ IV PRN (13:22)
[2018-03-16] MEDS: ATORVASTATIN CALCIUM 40 MG TABLET PO SCH (21:54)
[2018-03-16] MEDS: FUROSEMIDE INJ/PF 40 MG/4 ML SDV IV SCH (21:54)
[2018-03-16] MEDS ORDERED: INSULIN GLARGINE,HUM.REC.ANLOG 300 UNIT/3 ML INSULN.PEN SUBCUT SCH (22:00)
[2018-03-16] MEDS ORDERED: INSULIN GLARGINE,HUM.REC.ANLOG 1,000 UNIT/10 ML UNIT SUBCUT SCH (22:00)
--- NOTE | 2018-03-16 22:36 | PDOC PROGRESS REPORT ---
Subjective Progress Note for:: 03/16/18 Subjective:: Patient about the same and has made very little progress. There is no significant change in general condition. Patient responsiveness is somewhat better. Patient remains intubated, sedated, patient however looks comfortable and in acute distress. Patient tends to get tachycardic and tachypneic. Telemetry strips reviewed. Patient continues with frequent PVCs. Medications reviewed. Reason For Visit: ACUTE HYPOXIC RESPIRATORY FAILURE Physical Exam Vital Signs: Temp Pulse Resp BP Pulse Ox 99.1 F 56 L 41 H 127/107 H 95 03/16/18 22:00 03/16/18 20:38 03/16/18 22:00 03/16/18 21:50 03/16/18 22:00 Intake & Output 03/15/18 03/16/18 03/17/18 06:59 06:59 06:59 Intake Total 3435 2677 857 Output Total 1984 3010 3300 Balance 7820 338 -8113 Weight 92.9 kg 95.4 kg Exam: GENERAL: well-nourished and in no acute distress. Patient is intubated and sedated. Orientation cannot be checked HEAD: Atraumatic, normocephalic. EYES: Pupils equal round and reactive to light, extraocular movements could not be checked, sclera anicteric, conjunctiva are normal. ENT: TMs normal, nares patent, oropharynx clear without exudates. Moist mucous membranes. No oral ulcerations or bleeding gums noted NECK: supple without lymphadenopathy or JVD. Trachea is central. No cervical or axillary lymphadenopathy noted. Carotids are 2+ LUNGS: Breath sounds mostly clear to auscultation patient is noted to have bibasal crackles at the extreme bases CHEST: Palpation of the chest wall shows no significant chest wall tenderness or abnormalities. 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 ABDOMEN: Soft, no significant tenderness appreciated, normoactive bowel sounds. No guarding, no rebound. No rigidity noted . No masses appreciated. EXTREMITIES: Pedal pulses are 1-2+, no calf tenderness noted, 1+ pedal edema noted. No clubbing or cyanosis. NEUROLOGICAL: The patient cannot participate in the neurological exam but no facial asymmetry noted. Extremities slightly hypotonic PSYCH: This cannot be evaluated. Patient cannot participate. SKIN: No significant ecchymosis, rash, or signs of pruritus noted. MUSCULOSKELETAL EXAM: No significant joint swelling noted. Patient cannot participate in musculoskeletal exam Results Laboratory Results: 03/16/18 03:42 03/16/18 03:42 03/16/18 03/16/18 03/16/18 03:42 03:42 04:43 WBC 10.2 RBC 4.02 Hgb 12.2 Hct 35.7 L MCV 89 MCH 30.3 MCHC 34.0 RDW 14.0 Plt Count 281 Seg Neutrophils % 85.4 H Lymphocytes % 11.0 L Monocytes % 3.5 Eosinophils % 0.0 Basophils % 0.1 Absolute Neutrophils 8.7 H Absolute Lymphocytes 1.1 Absolute Monocytes 0.4 Absolute Eosinophils 0.0 Absolute Basophils 0.0 Carbonic Acid 0.95 L HCO3/H2CO3 Ratio 21:1 ABG pH 7.42 ABG pCO2 31.5 L ABG pO2 75.5 L ABG HCO3 20.2 ABG O2 Saturation 95.6 ABG Base Excess -3.4 FiO2 30% Sodium 139.5 Potassium 4.3 Chloride 110 H Carbon Dioxide 22 Anion Gap 8 BUN 25 H Creatinine 0.69 Est GFR ( Amer) > 60 Est GFR (Non-Af Amer) > 60 Glucose 361 H Calcium 8.7 Magnesium 2.4 H Total Bilirubin 0.4 AST 9 L ALT 36 Alkaline Phosphatase 62 Total Protein 5.7 L Albumin 3.1 L 03/12/18 03/12/18 03:59 03:59 Troponin I 0.054 NT-Pro-B Natriuret Pep 3480 H EKG Comments: Shows mainly sinus rhythm with frequent PVCs and short run of ventricular tachycardia, all nonsustained. Impressions: Abdomen Ultrasound 03/16/18 00:00 IMPRESSION: Gallbladder not visualized No intrahepatic biliary ductal dilatation. Common duct at the rickie hepatis normal caliber. Distal common duct not well seen due to duodenum gas Chest X-Ray 03/16/18 06:00 IMPRESSION: STABLE APPEARANCE OF THE CHEST. SUPPORT DEVICES UNCHANGED. Assessment & Plan - Diagnosis (1) Acute respiratory failure with hypoxia and hypercapnia Is this a current diagnosis for this admission?: Yes (2) CHF (congestive heart failure) Is this a current diagnosis for this admission?: Yes (3) COPD (chronic obstructive pulmonary disease) Qualifiers: COPD type: unspecified COPD Qualified Code(s): J44.9 - Chronic obstructive pulmonary disease, unspecified Is this a current diagnosis for this admission?: Yes (4) Diabetes mellitus type 2 in obese Is this a current diagnosis for this admission?: Yes (5) Frequent PVCs Is this a current diagnosis for this admission?: Yes (6) Tobacco dependence Is this a current diagnosis for this admission?: Yes (7) Pneumonia Qualifiers: Pneumonia type: due to unspecified organism Laterality: unspecified laterality Lung location: unspecified part of lung Qualified Code(s): J18.9 - Pneumonia, unspecified organism Is this a current diagnosis for this admission?: Yes - Notes Notes: Continue Current Rx. Patient remains same generally. Remains intubated but noted to be more responsive. Patient noted to have frequent PVCs and short run of NSVT 2D echo shows severely depressed LVEF. Although Ranexa was added, patient not getting it as pharmacy would not allow it to be crushed. Patient was also started on entresto but again pharmacy therefore patient was not getting. I therefore added Diovan to the regimen. As noted above, could use amiodarone bolus and drip protocol, if patient has any sustained ventricular arrhythmias. Acute respiratory failure with hypoxemia and hypercarbia: Possibly related to underlying COPD, pneumonitis, with some contribution from CHF. Agree with oxygenation and artificial ventilation. Recommend intermittent IV Lasix. Congestive heart failure: Patient has a history of it. At this time, patient seems to be relatively euvolemic to slightly fluid overloaded. As blood pressure would support, intermittent Lasix intravenously is being recommended to keep patient on the dry side. COPD: Agree with mechanical ventilation and oxygenation. Diabetes: Recommend good control of blood sugar but avoid any hypo-or hyperglycemia. Frequent ventricular ectopy: Continue with beta-david therapy as tolerated by her pulmonary and blood pressure problems. In the meantime maintain good oxygenation, maintain electrolytes within normal limits. As noted above, patient could be started on amiodarone drip if needed. Tobacco dependency: Currently patient not smoking as she is intubated. Pneumonia: Agree with broad-spectrum antibiotics. 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 - Time Time with patient: Greater than 35 minutes - CODE STATUS was discussed, patient remains full code. Surrogate decision-maker unchanged. Multiple medical problems were addressed. More than 50% of the time spent coordinating care, discussing management plans with involved caregivers. Management plans discussed with involved personnels. Medical decision making was of moderate to high complexity, patient's has multiple comorbidities. Medications reviewed and adjusted accordingly: Yes
--- NOTE | 2018-03-16 22:57 | EKG REPORT ---
SEVERITY:- ABNORMAL ECG - SINUS RHYTHM PAIRED VENTRICULAR PREMATURE COMPLEXES LOW VOLTAGE IN FRONTAL LEADS ABNORMAL T, CONSIDER ISCHEMIA, ANT-LAT LEADS : Confirmed by: Yousif Torres 16-Mar-2018 22:56:33
[2018-03-17] MEDS: LEVALBUTEROL HCL NEB 1.25 MG/3 ML AMPUL NEB PRN (00:27)
[2018-03-17] MEDS: MIDAZOLAM HCL 50 MG/100 ML RTUINJ IV PRN (02:21)
[2018-03-17] MEDS: PROPOFOL 1,000 MG/100 ML INFUS..BTL IV PRN ×5 (02:21→20:24)
[2018-03-17] MEDS: VANCOMYCIN HCL 1,000 MG in DEXTROSE 5%-WATER 250 ML IV SCH (02:21)
[2018-03-17] MEDS: IPRATROPIUM/ALBUTEROL 0.5-2.5 MG/3 ML AMPUL NEB SCH ×4 (02:39→20:18)
[2018-03-17 04:16] LABS: ABSOLUTE LYMPHOCYTES (AUTO) 1.3 10^3/uL (0.5-4.7); ABSOLUTE MONOCYTES (AUTO) 0.6 10^3/uL (0.1-1.4); ABSOLUTE NEUT (AUTO) 9.6 10^3/uL (1.7-8.2); BASOPHILS % (AUTO) 0.2 % (0-2); EOSINOPHILS % (AUTO) 0.1 % (0-6); HEMOGLOBIN 13.1 g/dL (12.0-15.5); LYMPHOCYTES % (AUTO) 11.2 % (13-45); MEAN CORPUSCULAR HGB CONC 34.5 g/dL (32.0-36.0); MEAN CORPUSCULAR VOLUME 87 fl (80-97); MONOCYTES % (AUTO) 4.8 % (3-13); PLATELET COUNT 283 10^3/uL (150-450); RED BLOOD COUNT 4.37 10^6/uL (3.72-5.28); RED CELL DISTRIBUTION WIDTH 13.7 % (11.5-14.0); SEGMENTED NEUTROPHILS % (AUTO) 83.7 % (42-78); TOTAL CELLS COUNTED % (AUTO) 100 %; WHITE BLOOD COUNT 11.5 10^3/uL (4.0-10.5)
[2018-03-17 04:47] LABS: ALANINE AMINOTRANSFERASE 37 U/L (9-52); ALBUMIN 3.3 g/dL (3.5-5.0); ALKALINE PHOSPHATASE 63 U/L (38-126); ANION GAP 8 (5-19); ASPARTATE AMINO TRANSFERASE 13 U/L (14-36); BILIRUBIN,DIRECT 0.4 mg/dL (0.0-0.4); BILIRUBIN,TOTAL 0.5 mg/dL (0.2-1.3); BLOOD UREA NITROGEN 25 mg/dL (7-20); CALCIUM 8.4 mg/dL (8.4-10.2); CARBON DIOXIDE 26 mmol/L (22-30); CHLORIDE 103 mmol/L (98-107); GLUCOSE 332 mg/dL (75-110); POTASSIUM 3.9 mmol/L (3.6-5.0); SODIUM 137.3 mmol/L (137-145); TOTAL PROTEIN 5.6 g/dL (6.3-8.2)
[2018-03-17] MEDS: CARVEDILOL 6.25 MG TABLET NG SCH ×2 (05:39→20:27)
[2018-03-17] MEDS: METHYLPREDNISOLONE INJ 125 MG/2 ML SDV IV SCH ×2 (05:39→20:18)
[2018-03-17] MEDS: PIPERACILLIN SODIUM/TAZOBACTAM 4.5 GM in NORMAL SALINE 100 ML IV SCH ×3 (05:39→20:26)
[2018-03-17] MEDS: HEPARIN SOD (PORCINE) 5,000 UNIT/ML 1 ML SYRINGE SUBCUT SCH ×2 (05:46→20:17)
[2018-03-17] MEDS: INSULIN LISPRO 100 UNIT/ML 3 ML VIAL SUBCUT PRN ×2 (05:46→12:17)
[2018-03-17 06:31] LABS: ARTERIAL BLOOD BASE EXCESS 2.6 mmol/L; ARTERIAL BLOOD H2CO3 1.21 mmol/L (1.05-1.35); ARTERIAL BLOOD HCO3 26.8 mmol/L (20-24); ARTERIAL BLOOD O2 SATURATION 96.4 % (94-98); ARTERIAL BLOOD PCO2 40.1 mmHg (35-45); ARTERIAL BLOOD PH 7.44 (7.35-7.45); ARTERIAL BLOOD PO2 81.8 mmHg (80-100)
[2018-03-17 06:34] LABS: ARTERIAL BLOOD FIO2 50%
--- NOTE | 2018-03-17 06:35 | RADIOLOGY REPORT (SQ) ---
Clinical History : pna , Exam : Portable AP view of the chest 03/17/2018 6:00 AM CDT Comparisons : Portable AP view of the chest March 16, 2018 Findings : There is an endotracheal tube with its tip X 0.6 cm above the aleah. There is an enteric tube with its tip in the gastric body. The lungs are clear without focal consolidation or pleural effusion. The heart is normal in size. The mediastinal contours are normal in appearance. The thoracic spine is age appropriate. The shoulders are unremarkable. Limited evaluation of the upper abdomen demonstrates no gross abnormalities. Impression: 1. Life support lines and tubes in appropriate position. 2. No acute cardiopulmonary disease (stable appearing chest).
[2018-03-17] MEDS: BUDESONIDE NEB 0.5 MG/2 ML AMPUL NEB SCH ×2 (08:22→20:18)
--- NOTE | 2018-03-17 09:27 | EKG REPORT ---
SEVERITY:- ABNORMAL ECG - SINUS RHYTHM LOW VOLTAGE IN FRONTAL LEADS ABNORMAL T, CONSIDER ISCHEMIA, ANT-LAT LEADS : Confirmed by: Yousif Torres 17-Mar-2018 09:26:25
[2018-03-17 09:42] LABS: VANCOMYCIN,TROUGH 19.3 ug/mL (5.0-20.0)
[2018-03-17] MEDS ORDERED: SACUBITRIL/VALSARTAN 24 MG/26 MG TABLET NG SCH (12:00)
[2018-03-17] MEDS: PANTOPRAZOLE SODIUM 40 MG VIAL IV SCH (12:17)
[2018-03-17] MEDS: FUROSEMIDE INJ/PF 40 MG/4 ML SDV IV SCH (12:17)
[2018-03-17] MEDS: ASPIRIN 81 MG TABLET, CHEWABLE PO SCH (12:18)
[2018-03-17] MEDS: DIGOXIN 0.125 MG TABLET PO SCH (12:19)
[2018-03-17] MEDS: SPIRONOLACTONE 25 MG TABLET PO SCH (12:21)
--- NOTE | 2018-03-17 16:06 | PDOC TRANSFER SUMMARY ---
General Admission Date/PCP: 03/11/18 22:18 Resuscitation Status: Full Code - Transfer Diagnosis (1) Acute respiratory failure with hypoxia and hypercapnia Is this a current diagnosis for this admission?: Yes (2) COPD exacerbation Is this a current diagnosis for this admission?: Yes (3) CHF exacerbation Is this a current diagnosis for this admission?: Yes - Transfer Medications Home Medications: Albuterol Sulfate [Ventolin HFA MDI 18 GM] 2 puff IH Q6HP PRN 03/12/18 Atorvastatin Calcium [Lipitor 40 mg Tablet] 40 mg PO QHS 03/12/18 Budesonide/Formoterol Fumarate [Symbicort Hfa 160-4.5 Mcg Inhaler 6 gm] 1 puff IH Q12 03/12/18 Cilostazol 50 mg PO Q12 03/12/18 Clonazepam [Klonopin 1 mg Tablet] 2 mg PO Q12 03/12/18 Clonidine HCl [Catapres 0.2 mg Tablet] 0.2 mg PO DAILY 03/12/18 Furosemide [Lasix 20 mg Tablet] 20 mg PO QAM 03/12/18 Gabapentin [Neurontin 400 mg Capsule] 400 mg PO Q8 03/12/18 Ipratropium/Albuterol Sulfate [Combivent Respimat 4 gm Mdi] 1 puff IH Q12 Ipratropium/Albuterol Sulfate [Duoneb 3 ml Ampul] 3 ml NEB RTQ6HP PRN 03/12/18 Levothyroxine Sodium [Synthroid 0.025 mg Tablet] 25 mcg PO Q6AM 03/12/18 Losartan Potassium [Cozaar 25 mg Tablet] 25 mg PO DAILY 03/12/18 Metformin HCl [Glucophage] 850 mg PO BIDBS 03/12/18 Montelukast Sodium [Singulair 10 mg Tablet] 10 mg PO QHS 03/12/18 Nifedipine [Nifedipine ER] 30 mg PO DAILY 03/12/18 Omeprazole 20 mg PO DAILY 03/12/18 Sertraline HCl [Zoloft 50 mg Tablet] 50 mg PO DAILY 03/12/18 Umeclidinium Isabella [Incruse Ellipta] 1 puff IH DAILY 03/12/18 Transfer Medications: Current Medications Acetaminophen (Tylenol 325 Mg Tablet) 650 mg PO Q4HP PRN PRN Reason: FOR PAIN OR TEMP Stop: 04/10/18 22:51 Last Admin: 03/16/18 13:22 Dose: 650 mg Albuterol/Ipratropium (Duoneb 3 Ml Ampul) 3 ml NEB RTQ6 [facility] Stop: 04/12/18 13:59 Last Admin: 03/17/18 14:23 Dose: 3 ml Aspirin (Aspirin 81 Mg Chewable Tablet) 81 mg PO DAILY [facility] Stop: 04/14/18 09:59 Last Admin: 03/17/18 12:18 Dose: 81 mg Atorvastatin Calcium (Lipitor 40 Mg Tablet) 40 mg PO QHS [facility] Stop: 04/13/18 21:59 Last Admin: 03/16/18 21:54 Dose: 40 mg Budesonide (Pulmicort Neb 0.5 Mg/2 Ml Ampul) 0.5 mg NEB RTQ12 [facility] Stop: 04/12/18 10:29 Last Admin: 03/17/18 08:22 Dose: 0.5 mg Carvedilol (Coreg 6.25 Mg Tablet) 6.25 mg NG Q12A [facility] Stop: 04/14/18 17:59 Last Admin: 03/17/18 05:39 Dose: 6.25 mg Dextrose (Dextrose Inj 50% Syringe (25 Gm/50 Ml)) 12.5 gm IV PRN PRN; Protocol PRN Reason: FOR BG 50-69 IN ALERT PATIENT Stop: 04/13/18 14:18 Dextrose (Dextrose Inj 50% Syringe (25 Gm/50 Ml)) 25 gm IV PRN PRN; Protocol PRN Reason: PER PROTOCOL Stop: 04/13/18 14:18 Digoxin (Lanoxin 0.125 Mg Tablet) 0.125 mg PO DAILY LIZETH Stop: 04/13/18 12:44 Last Admin: 03/17/18 12:19 Dose: 0.125 mg Furosemide (Lasix Inj/Pf 40 Mg/4 Ml Sdv) 40 mg IV Q12 [facility] Stop: 04/15/18 21:59 Last Admin: 03/17/18 12:17 Dose: 40 mg Glucagon (Glucagen Inj 1 Mg Vial) 1 mg IM PRN PRN; Protocol PRN Reason: Evaluate for BG < 70 Stop: 04/11/18 02:10 Glucagon (Glucagen Inj 1 Mg Vial) 1 mg IM PRN PRN; Protocol PRN Reason: Evaluate for BG < 70 Stop: 04/13/18 14:18 Glucose (Glutose 40% Gel 15 Gm Tube) 30 gm PO PRN PRN; Protocol PRN Reason: FOR BG < 50 IN ALERT PATIENT Stop: 04/13/18 14:18 Glucose (Glutose 40% Gel 15 Gm Tube) 15 gm PO PRN PRN; Protocol PRN Reason: FOR BG 50-69 IN ALERT PATIENT Stop: 04/13/18 14:18 Heparin Sodium (Porcine) (Heparin Inj 5,000 Units/Ml 1 Ml Syringe) 5,000 unit SUBCUT Q8 [facility] Stop: 04/11/18 13:59 Last Admin: 03/17/18 05:46 Dose: 5,000 unit Midazolam HCl (Versed Rtu 50 Mg/100 Ml Premix Bag) 50 mg in 100 mls @ 0 mls/hr IV CONTINUOUS PRN; Protocol; Titrate PRN Reason: THIS MED IS NOT "PRN" Stop: 03/18/18 21:57 Last Admin: 03/17/18 02:21 Dose: 4 mls/hr, 4 mls/hr Sodium Chloride (Nacl 0.9% 1000 Ml Iv Soln) 1,000 mls @ 75 mls/hr IV CONTINUOUS PRN PRN Reason: THIS MED IS NOT "PRN" Stop: 04/10/18 23:04 Last Admin: 03/16/18 23:58 Dose: 75 mls/hr Propofol (Diprivan Rtu 1000 Mg/100 Ml Inf.Bottle) 1,000 mg in 100 mls @ 0 mls/ hr IV CONTINUOUS PRN; Protocol; Titrate PRN Reason: THIS MED IS NOT "PRN" Stop: 04/11/18 15:47 Last Admin: 03/17/18 12:16 Dose: 40 mcg/kg/min, 20.78 mls/hr Piperacillin Sod/Tazobactam (Sod 4.5 gm/ Sodium Chloride) 100 mls @ 200 mls/hr IV Q6 [facility] Stop: 03/20/18 17:59 Last Admin: 03/17/18 12:20 Dose: 200 ml/hr, 200 mls/hr Vancomycin HCl 750 mg/ (Dextrose) 250 mls @ 166.667 mls/hr IV Q8A [facility] Stop: 03/22/18 17:59 Insulin Glargine (Lantus Insulin Inj 300 Unit/3 Ml Pen) 25 unit SUBCUT QHS [facility] Stop: 04/15/18 21:59 Last Admin: 03/16/18 21:55 Dose: 25 units Insulin Human Lispro (Humalog Insulin 100 Unit/1 Ml 3 Ml Vial) 0 - 12 unit SUBCUT Q6HP PRN PRN Reason: Protocol Stop: 04/11/18 14:01 Last Admin: 03/17/18 12:17 Dose: 6 units Levalbuterol HCl (Xopenex Neb 1.25 Mg/3 Ml Ampul) 1.25 mg NEB RTQ4HP PRN PRN Reason: SHORTNESS OF BREATH Stop: 04/12/18 11:59 Last Admin: 03/17/18 00:27 Dose: 1.25 mg Methylprednisolone Sodium Succinate (Solu-Medrol Inj/Pf 125 Mg/2 Ml Sdv) 60 mg IV Q8 [facility] Stop: 04/11/18 21:59 Last Admin: 03/17/18 05:39 Dose: 60 mg Pantoprazole Sodium (Protonix Iv Inj 40 Mg Vial) 40 mg IV DAILY [facility] Stop: 03/18/18 12:59 Last Admin: 03/17/18 12:17 Dose: 40 mg Promethazine HCl (Phenergan Inj 25 Mg/1 Ml Vial) 25 mg IV Q4HP PRN PRN Reason: FOR NAUSEA/VOMITING Stop: 04/10/18 22:51 Ranolazine (Ranexa 500 Mg Tab.Sr) 500 mg PO Q12 [facility] Stop: 04/13/18 12:59 Last Admin: 03/14/18 22:07 Dose: 500 mg Sacubitril/Valsartan (Entresto 24 Mg/26 Mg Tablet) 1 tab NG Q12 [facility] Stop: 04/16/18 11:59 Last Admin: 03/17/18 12:20 Dose: 1 tab Sodium Chloride (Saline Flush 2.5 Ml Monoject Prefil Syrin) 2.5 ml IV Q8 [facility] Stop: 04/11/18 05:59 Last Admin: 03/17/18 05:40 Dose: Not Given Spironolactone (Aldactone 25 Mg Tablet) 25 mg PO DAILY [facility] Stop: 04/13/18 12:44 Last Admin: 03/17/18 12:21 Dose: 25 mg - Allergies Allergies/Adverse Reactions: codeine Allergy (Intermediate, Verified 03/12/18 02:46) Hospital Course Hospital Course: Ms. THELMA ARANGO is a 63 year old female with a history of CHF, COPD, with 2 prior intubations, who presented to the emergency department complaining of progressive shortness of breath. Upon presentation, patient was noted to be having agonal respirations and was cyanotic as well as hypoxic. Patient was promptly intubated in the ER and was noted to have severely decreased sounds bilaterally. Patient was treated for severe COPD exacerbation and also concomitant CHF exacerbation. She was started on IV steroids as well as broad-spectrum IV antibiotics. Patient was also started that on diuresis with IV Lasix. Cardiology and pulmonology were consulted. Patient has been difficult to wean but is currently saturating well on 50% FiO2. Repeat echo showed an EF of 20-25% . Patient is currently well sedated on propofol and Versed. She will be transferred to [facility] for escalation of care. Physical Exam Vital Signs: Temp Pulse Resp BP Pulse Ox 98.2 F 76 20 108/74 97 03/17/18 12:00 03/17/18 14:24 03/17/18 14:24 03/17/18 11:51 03/17/18 14:24 Intake & Output 03/16/18 03/17/18 03/18/18 06:59 06:59 06:59 Intake Total 2677 2828 137 Output Total 3015 5950 245 Balance -338 -3122 -108 Weight 210 lb 5.136 oz 199 lb 8.293 oz General appearance: PRESENT: other - Intubated and sedated Head exam: PRESENT: atraumatic, normocephalic Eye exam: PRESENT: conjunctiva pink, EOMI, PERRLA. ABSENT: scleral icterus Neck exam: ABSENT: carotid bruit, JVD, lymphadenopathy, thyromegaly Respiratory exam: PRESENT: clear to auscultation sandor, rales - occasional rales in the bases. ABSENT: rhonchi, wheezes Cardiovascular exam: PRESENT: RRR, systolic murmur Pulses: PRESENT: normal dorsalis pedis pul GI/Abdominal exam: PRESENT: normal bowel sounds, soft. ABSENT: distended, guarding, mass, organolmegaly, rebound, tenderness Rectal exam: PRESENT: deferred Neurological exam: PRESENT: other - Intubated and sedated Results Laboratory Results: 03/17/18 04:02 03/17/18 08:57 03/17/18 03/17/18 03/17/18 04:02 04:02 04:45 WBC 11.5 H RBC 4.37 Hgb 13.1 Hct 38.0 MCV 87 MCH 30.0 MCHC 34.5 RDW 13.7 Plt Count 283 Seg Neutrophils % 83.7 H Lymphocytes % 11.2 L Monocytes % 4.8 Eosinophils % 0.1 Basophils % 0.2 Absolute Neutrophils 9.6 H Absolute Lymphocytes 1.3 Absolute Monocytes 0.6 Absolute Eosinophils 0.0 Absolute Basophils 0.0 Carbonic Acid 1.21 HCO3/H2CO3 Ratio 22:1 ABG pH 7.44 ABG pCO2 40.1 ABG pO2 81.8 ABG HCO3 26.8 H ABG O2 Saturation 96.4 ABG Base Excess 2.6 FiO2 50% Sodium 137.3 Potassium 3.9 Chloride 103 Carbon Dioxide 26 Anion Gap 8 BUN 25 H Creatinine 0.58 Est GFR ( Amer) > 60 Est GFR (Non-Af Amer) > 60 Glucose 332 H Calcium 8.4 Magnesium 2.1 Total Bilirubin 0.5 AST 13 L ALT 37 Alkaline Phosphatase 63 Total Protein 5.6 L Albumin 3.3 L 03/17/18 08:57 WBC RBC Hgb Hct MCV MCH MCHC RDW Plt Count Seg Neutrophils % Lymphocytes % Monocytes % Eosinophils % Basophils % Absolute Neutrophils Absolute Lymphocytes Absolute Monocytes Absolute Eosinophils Absolute Basophils Carbonic Acid HCO3/H2CO3 Ratio ABG pH ABG pCO2 ABG pO2 ABG HCO3 ABG O2 Saturation ABG Base Excess FiO2 Sodium Potassium Chloride Carbon Dioxide Anion Gap BUN Creatinine 0.58 Est GFR ( Amer) > 60 Est GFR (Non-Af Amer) > 60 Glucose Calcium Magnesium Total Bilirubin AST ALT Alkaline Phosphatase Total Protein Albumin 03/12/18 03/12/18 03:59 03:59 Troponin I 0.054 NT-Pro-B Natriuret Pep 3480 H Impressions: Abdomen Ultrasound 03/16/18 00:00 IMPRESSION: Gallbladder not visualized No intrahepatic biliary ductal dilatation. Common duct at the rickie hepatis normal caliber. Distal common duct not well seen due to duodenum gas
[2018-03-17] MEDS ORDERED: VANCOMYCIN HCL 750 MG in DEXTROSE 5%-WATER 250 ML IV SCH (18:00)
[2018-03-17 19:55] VITALS: BP 90/66
[2018-03-17] MEDS: NORMAL SALINE 1000 ML 1,000 ML IV PRN (20:28)
--- NOTE | 2018-03-17 20:33 | PDOC PROGRESS REPORT ---
Subjective Progress Note for:: 03/17/18 Subjective:: Patient about the same and has made very little progress. There is no significant change in general condition. Patient responsiveness is somewhat better. Patient remains intubated, sedated, patient however looks comfortable and in acute distress. Patient tends to get tachycardic and tachypneic. Telemetry strips reviewed. Patient continues with frequent PVCs. Medications reviewed. Reason For Visit: ACUTE HYPOXIC RESPIRATORY FAILURE Physical Exam Vital Signs: Temp Pulse Resp BP Pulse Ox 99.3 F 70 20 90/66 L 97 03/17/18 19:51 03/17/18 18:00 03/17/18 19:51 03/17/18 19:51 03/17/18 19:51 Intake & Output 03/16/18 03/17/18 03/18/18 06:59 06:59 06:59 Intake Total 2677 2828 1337 Output Total 3015 4050 2300 Balance -338 -4577 -963 Weight 95.4 kg 90.5 kg Exam: GENERAL: well-nourished and in no acute distress. Patient is intubated and sedated. Orientation cannot be checked HEAD: Atraumatic, normocephalic. EYES: Pupils equal round and reactive to light, extraocular movements could not be checked, sclera anicteric, conjunctiva are normal. ENT: TMs normal, nares patent, oropharynx clear without exudates. Moist mucous membranes. No oral ulcerations or bleeding gums noted NECK: supple without lymphadenopathy or JVD. Trachea is central. No cervical or axillary lymphadenopathy noted. Carotids are 2+ LUNGS: Breath sounds mostly clear to auscultation patient is noted to have bibasal crackles at the extreme bases CHEST: Palpation of the chest wall shows no significant chest wall tenderness or abnormalities. 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 ABDOMEN: Soft, no significant tenderness appreciated, normoactive bowel sounds. No guarding, no rebound. No rigidity noted . No masses appreciated. EXTREMITIES: Pedal pulses are 1-2+, no calf tenderness noted, 1+ pedal edema noted. No clubbing or cyanosis. NEUROLOGICAL: The patient cannot participate in the neurological exam but no facial asymmetry noted. Extremities slightly hypotonic PSYCH: This cannot be evaluated. Patient cannot participate. SKIN: No significant ecchymosis, rash, or signs of pruritus noted. MUSCULOSKELETAL EXAM: No significant joint swelling noted. Patient cannot participate in musculoskeletal exam Results Laboratory Results: 03/17/18 04:02 03/17/18 08:57 03/17/18 03/17/18 03/17/18 04:02 04:02 04:45 WBC 11.5 H RBC 4.37 Hgb 13.1 Hct 38.0 MCV 87 MCH 30.0 MCHC 34.5 RDW 13.7 Plt Count 283 Seg Neutrophils % 83.7 H Lymphocytes % 11.2 L Monocytes % 4.8 Eosinophils % 0.1 Basophils % 0.2 Absolute Neutrophils 9.6 H Absolute Lymphocytes 1.3 Absolute Monocytes 0.6 Absolute Eosinophils 0.0 Absolute Basophils 0.0 Carbonic Acid 1.21 HCO3/H2CO3 Ratio 22:1 ABG pH 7.44 ABG pCO2 40.1 ABG pO2 81.8 ABG HCO3 26.8 H ABG O2 Saturation 96.4 ABG Base Excess 2.6 FiO2 50% Sodium 137.3 Potassium 3.9 Chloride 103 Carbon Dioxide 26 Anion Gap 8 BUN 25 H Creatinine 0.58 Est GFR ( Amer) > 60 Est GFR (Non-Af Amer) > 60 Glucose 332 H Calcium 8.4 Magnesium 2.1 Total Bilirubin 0.5 AST 13 L ALT 37 Alkaline Phosphatase 63 Total Protein 5.6 L Albumin 3.3 L 03/17/18 08:57 WBC RBC Hgb Hct MCV MCH MCHC RDW Plt Count Seg Neutrophils % Lymphocytes % Monocytes % Eosinophils % Basophils % Absolute Neutrophils Absolute Lymphocytes Absolute Monocytes Absolute Eosinophils Absolute Basophils Carbonic Acid HCO3/H2CO3 Ratio ABG pH ABG pCO2 ABG pO2 ABG HCO3 ABG O2 Saturation ABG Base Excess FiO2 Sodium Potassium Chloride Carbon Dioxide Anion Gap BUN Creatinine 0.58 Est GFR ( Amer) > 60 Est GFR (Non-Af Amer) > 60 Glucose Calcium Magnesium Total Bilirubin AST ALT Alkaline Phosphatase Total Protein Albumin 03/12/18 03/12/18 03:59 03:59 Troponin I 0.054 NT-Pro-B Natriuret Pep 3480 H Impressions: Abdomen Ultrasound 03/16/18 00:00 IMPRESSION: Gallbladder not visualized No intrahepatic biliary ductal dilatation. Common duct at the rickie hepatis normal caliber. Distal common duct not well seen due to duodenum gas Assessment & Plan - Diagnosis (1) Acute respiratory failure with hypoxia and hypercapnia Is this a current diagnosis for this admission?: Yes (2) CHF (congestive heart failure) Is this a current diagnosis for this admission?: Yes (3) COPD (chronic obstructive pulmonary disease) Qualifiers: COPD type: unspecified COPD Qualified Code(s): J44.9 - Chronic obstructive pulmonary disease, unspecified Is this a current diagnosis for this admission?: Yes (4) Diabetes mellitus type 2 in obese Is this a current diagnosis for this admission?: Yes (5) Frequent PVCs Is this a current diagnosis for this admission?: Yes (6) Tobacco dependence Is this a current diagnosis for this admission?: Yes (7) Pneumonia Qualifiers: Pneumonia type: due to unspecified organism Laterality: unspecified laterality Lung location: unspecified part of lung Qualified Code(s): J18.9 - Pneumonia, unspecified organism Is this a current diagnosis for this admission?: Yes - Notes Notes: No significant change in patient's condition. Remains intubated but noted to be more responsive. 2D echo shows severely depressed LVEF. Continue beta- david, ANDERS inhibitor/ARB/entresto therapy. Could use amiodarone bolus and drip protocol, if patient has any sustained ventricular arrhythmias. Acute respiratory failure with hypoxemia and hypercarbia: Possibly related to underlying COPD, pneumonitis, with some contribution from CHF. Agree with oxygenation and artificial ventilation. Recommend intermittent IV Lasix. Congestive heart failure: Patient has a history of it. At this time, patient seems to be relatively euvolemic to slightly fluid overloaded. As blood pressure would support, intermittent Lasix intravenously is being recommended to keep patient on the dry side. COPD: Agree with mechanical ventilation and oxygenation. Diabetes: Recommend good control of blood sugar but avoid any hypo-or hyperglycemia. Frequent ventricular ectopy: Patient has severe LV systolic dysfunction. Continue e beta-david therapy as tolerated by her pulmonary and blood pressure problems. Maintain good oxygenation, maintain electrolytes within normal limits. Tobacco dependency: Currently patient not smoking as he is intubated. Pneumonia: Agree with broad-spectrum antibiotics. 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 - Time Time with patient: Greater than 35 minutes - CODE STATUS was discussed, patient remains full code. Surrogate decision-maker unchanged. Multiple medical problems were addressed. More than 50% of the time spent coordinating care, discussing management plans with involved caregivers. Management plans discussed with involved personnels. Medical decision making was of moderate to high complexity, patient's has multiple comorbidities. Medications reviewed and adjusted accordingly: Yes
--- NOTE | 2018-03-19 17:36 | PDOC PROGRESS REPORT ---
Subjective Progress Note for:: 03/15/18 Subjective:: Patient about the same and has made very little progress. There is no significant change in general condition. Patient responsiveness is somewhat better. Patient remains intubated, sedated, patient however looks comfortable and in acute distress. Patient tends to get tachycardic and tachypneic. Telemetry strips reviewed. Patient continues with frequent PVCs. Medications reviewed. Reason For Visit: ACUTE HYPOXIC RESPIRATORY FAILURE Physical Exam Vital Signs: Temp Pulse Resp BP Pulse Ox 100.0 F 86 23 H 153/102 H 95 03/15/18 19:32 03/15/18 18:00 03/15/18 18:00 03/15/18 18:00 03/15/18 18:00 Intake & Output 03/14/18 03/15/18 03/16/18 06:59 06:59 06:59 Intake Total 2123 3435 688 Output Total 1919 1985 2290 Balance 205 1450 -1602 Weight 92 kg 92.9 kg Exam: GENERAL: well-nourished and in no acute distress. Patient is intubated and sedated. Orientation cannot be checked HEAD: Atraumatic, normocephalic. EYES: Pupils equal round and reactive to light, extraocular movements could not be checked, sclera anicteric, conjunctiva are normal. ENT: TMs normal, nares patent, oropharynx clear without exudates. Moist mucous membranes. No oral ulcerations or bleeding gums noted NECK: supple without lymphadenopathy or JVD. Trachea is central. No cervical or axillary lymphadenopathy noted. Carotids are 2+ LUNGS: Breath sounds mostly clear to auscultation patient is noted to have bibasal crackles at the extreme bases CHEST: Palpation of the chest wall shows no significant chest wall tenderness or abnormalities. 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 ABDOMEN: Soft, no significant tenderness appreciated, normoactive bowel sounds. No guarding, no rebound. No rigidity noted . No masses appreciated. EXTREMITIES: Pedal pulses are 1-2+, no calf tenderness noted, 1+ pedal edema noted. No clubbing or cyanosis. NEUROLOGICAL: The patient cannot participate in the neurological exam but no facial asymmetry noted. Extremities slightly hypotonic PSYCH: This cannot be evaluated. Patient cannot participate. SKIN: No significant ecchymosis, rash, or signs of pruritus noted. MUSCULOSKELETAL EXAM: No significant joint swelling noted. Patient cannot participate in musculoskeletal exam Results Laboratory Results: 03/15/18 03:47 03/15/18 03:47 03/15/18 03/15/18 03/15/18 03:47 03:47 05:09 WBC 12.4 H RBC 4.04 Hgb 11.9 L Hct 36.0 MCV 89 MCH 29.6 MCHC 33.2 RDW 14.1 H Plt Count 293 Seg Neutrophils % 87.0 H Lymphocytes % 9.4 L Monocytes % 3.5 Eosinophils % 0.0 Basophils % 0.1 Absolute Neutrophils 10.8 H Absolute Lymphocytes 1.2 Absolute Monocytes 0.4 Absolute Eosinophils 0.0 Absolute Basophils 0.0 Carbonic Acid 1.15 HCO3/H2CO3 Ratio 20:1 ABG pH 7.40 ABG pCO2 38.2 ABG pO2 71.3 L ABG HCO3 23.3 ABG O2 Saturation 94.5 ABG Base Excess -1.2 FiO2 30% Sodium 139.9 Potassium 4.2 Chloride 110 H Carbon Dioxide 21 L Anion Gap 9 BUN 23 H Creatinine 0.66 Est GFR ( Amer) > 60 Est GFR (Non-Af Amer) > 60 Glucose 332 H Calcium 8.9 Magnesium 2.5 H 03/13/18 09:51 Catheterized Urine Urine Culture - Final NO GROWTH 2 DAYS 03/13/18 09:51 Tracheal Aspirate Gram Stain - Final 03/13/18 09:51 Tracheal Aspirate Sputum Culture - Final 03/12/18 03/12/18 03:59 03:59 Troponin I 0.054 NT-Pro-B Natriuret Pep 3480 H EKG Comments: Shows sinus rhythm with frequent VPCs and short run of NSVT Impressions: Chest X-Ray 03/15/18 06:00 IMPRESSION: No acute disease. Assessment & Plan - Diagnosis (1) Acute respiratory failure with hypoxia and hypercapnia Is this a current diagnosis for this admission?: Yes (2) CHF (congestive heart failure) Is this a current diagnosis for this admission?: Yes (3) COPD (chronic obstructive pulmonary disease) Qualifiers: COPD type: unspecified COPD Qualified Code(s): J44.9 - Chronic obstructive pulmonary disease, unspecified Is this a current diagnosis for this admission?: Yes (4) Diabetes mellitus type 2 in obese Is this a current diagnosis for this admission?: Yes (5) Frequent PVCs Is this a current diagnosis for this admission?: Yes (6) Tobacco dependence Is this a current diagnosis for this admission?: Yes (7) Pneumonia Qualifiers: Pneumonia type: due to unspecified organism Laterality: unspecified laterality Lung location: unspecified part of lung Qualified Code(s): J18.9 - Pneumonia, unspecified organism Is this a current diagnosis for this admission?: Yes - Notes Notes: Patient remains same generally. Remains intubated but noted to be more responsive. Patient noted to have frequent PVCs and short run of NSVT 2D echo shows severely depressed LVEF. Although Ranexa was added, patient not getting it as pharmacy would not allow it to be crushed. Could use amiodarone bolus and drip protocol, if patient has any sustained ventricular arrhythmias. Acute respiratory failure with hypoxemia and hypercarbia: Possibly related to underlying COPD, pneumonitis, with some contribution from CHF. Agree with oxygenation and artificial ventilation. Recommend intermittent IV Lasix. Congestive heart failure: Patient has a history of it. At this time, patient seems to be relatively euvolemic to slightly fluid overloaded. As blood pressure would support, intermittent Lasix intravenously is being recommended to keep patient on the dry side. COPD: Agree with mechanical ventilation and oxygenation. Diabetes: Recommend good control of blood sugar but avoid any hypo-or hyperglycemia. Frequent ventricular ectopy: Recommend low-dose beta-david therapy as tolerated by her pulmonary and blood pressure problems. In the meantime maintain good oxygenation, maintain electrolytes within normal limits. As noted above, patient could be started on amiodarone drip if needed. Tobacco dependency: Currently patient not smoking as she is intubated. Pneumonia: Agree with broad-spectrum antibiotics. 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 - Time Time with patient: Greater than 35 minutes - CODE STATUS was discussed, patient remains full code. Surrogate decision-maker unchanged. Multiple medical problems were addressed. More than 50% of the time spent coordinating care, discussing management plans with involved caregivers. Management plans discussed with involved personnels. Medical decision making was of moderate to high complexity, patient's has multiple comorbidities. Medications reviewed and adjusted accordingly: Yes
== END 2018-03-17 21:45 | disposition short-term general hospital (02) | DRG 207 ==
LOC: ER 20:02 → EH 22:18 → ICU 03-12
PROVIDERS: ADMIT Internal Medicine; ATTEND Internal Medicine
PROC: 0BH17EZ Insertion of Endotracheal Airway into Trachea, Via Natural or Artificial Opening (ICD-10-PCS; principal; 2018-03-11)
PROC: 5A1955Z Respiratory Ventilation, Greater than 96 Consecutive Hours (ICD-10-PCS; 2018-03-11)
DX: J96.01 Acute respiratory failure with hypoxia (principal); J18.9 Pneumonia, unspecified organism; J44.1 Chronic obstructive pulmonary disease with (acute) exacerbation; J96.02 Acute respiratory failure with hypercapnia; E87.5 Hyperkalemia; E11.65 Type 2 diabetes mellitus with hyperglycemia; I11.0 Hypertensive heart disease with heart failure; I50.9 Heart failure, unspecified; E78.5 Hyperlipidemia, unspecified; E03.9 Hypothyroidism, unspecified; K21.9 Gastro-esophageal reflux disease without esophagitis; F32.9 Major depressive disorder, single episode, unspecified; F41.1 Generalized anxiety disorder; Z90.710 Acquired absence of both cervix and uterus; Z79.899 Other long term (current) drug therapy; Z79.84 Long term (current) use of oral hypoglycemic drugs; Z88.8 Allergy status to other drugs, medicaments and biological substances; F17.210 Nicotine dependence, cigarettes, uncomplicated
CPT/HCPCS: 36415; 36600; 51702; 71045; 76705; 80048; 80053; 80074; 80162; 80202; 80307; 81001; 82565; 82803; 82962; 83036; 83605; 83735; 83880; 84132; 84439; 84443; 84481; 84484; 85025; 87040; 87070; 87086; 87205; 93005; 93010; 93306; 93976; 94002; 94003; 96365; 96375; 99291; J0171; J0330; J0456; J1644; J1815; J1940; J1956; J2250; J2543; J2704; J2930; J3010; J3370; J3475; J3490; J7030; J7060; J7620; S0164

== ENCOUNTER → 2018-07-18 | Outpatient (CLI) | payer MEDICARE, MEDICAID ==
[2018-07-18 12:06] LABS: ABSOLUTE BASOPHILS # (AUTO) 0.1 10^3/uL (0.0-0.2); ABSOLUTE EOSINOPHILS # (AUTO) 0.3 10^3/uL (0.0-0.6); ABSOLUTE LYMPHOCYTES (AUTO) 2.7 10^3/uL (0.5-4.7); ABSOLUTE MONOCYTES (AUTO) 0.5 10^3/uL (0.1-1.4); ABSOLUTE NEUT (AUTO) 4.2 10^3/uL (1.7-8.2); BASOPHILS % (AUTO) 1.3 % (0-2); EOSINOPHILS % (AUTO) 3.4 % (0-6); HEMATOCRIT 39.3 % (36.0-47.0); HEMOGLOBIN 13.2 g/dL (12.0-15.5); LYMPHOCYTES % (AUTO) 35.2 % (13-45); MEAN CORPUSCULAR HEMOGLOBIN 29.6 pg (27.0-33.4); MEAN CORPUSCULAR HGB CONC 33.5 g/dL (32.0-36.0); MEAN CORPUSCULAR VOLUME 88 fl (80-97); MONOCYTES % (AUTO) 6.8 % (3-13); PLATELET COUNT 422 10^3/uL (150-450); RED BLOOD COUNT 4.45 10^6/uL (3.72-5.28); RED CELL DISTRIBUTION WIDTH 14.9 % (11.5-14.0); SEGMENTED NEUTROPHILS % (AUTO) 53.3 % (42-78); TOTAL CELLS COUNTED % (AUTO) 100 %; WHITE BLOOD COUNT 7.8 10^3/uL (4.0-10.5)
[2018-07-18 12:10] LABS: APPEARANCE,URINE CLEAR; BILIRUBIN,URINE NEGATIVE (NEGATIVE); COLOR,URINE YELLOW; GLUCOSE, URINE NEGATIVE (NEGATIVE); KETONES,URINE NEGATIVE (NEGATIVE); LEUKOCYTE ESTERASE,URINE NEGATIVE (NEGATIVE); NITRITE,URINE NEGATIVE (NEGATIVE); PROTEIN,URINE NEGATIVE (NEGATIVE); UROBILINOGEN,URINE NEGATIVE mg/dL (<2.0)
[2018-07-18 12:22] LABS: ALANINE AMINOTRANSFERASE 27 U/L (9-52); ALBUMIN 4.3 g/dL (3.5-5.0); ALKALINE PHOSPHATASE 62 U/L (38-126); ANION GAP 8 (5-19); ASPARTATE AMINO TRANSFERASE 15 U/L (14-36); BILIRUBIN,DIRECT 0.2 mg/dL (0.0-0.4); BILIRUBIN,TOTAL 0.4 mg/dL (0.2-1.3); BLOOD UREA NITROGEN 14 mg/dL (7-20); CALCIUM 9.8 mg/dL (8.4-10.2); CARBON DIOXIDE 27 mmol/L (22-30); CHLORIDE 103 mmol/L (98-107); CREATINE KINASE 50 U/L (30-135); GLUCOSE 194 mg/dL (75-110); POTASSIUM 4.8 mmol/L (3.6-5.0); SODIUM 137.6 mmol/L (137-145); TOTAL PROTEIN 6.3 g/dL (6.3-8.2)
== END ==
LOC: LAB 11:39
PROVIDERS: ATTEND Family Medicine
DX: I95.9 Hypotension, unspecified (principal); R06.00 Dyspnea, unspecified
CPT/HCPCS: 36415; 80053; 81001; 82550; 83735; 83880; 84443; 84484; 85025; 85379

== ENCOUNTER 2018-11-24 21:48 | Emergency (ER) | payer MEDICAID, MEDICARE ==
[2018-11-24] MEDS ORDERED: IPRATROPIUM/ALBUTEROL 0.5-2.5 MG/3 ML AMPUL NEB ONE (22:02)
[2018-11-24] MEDS ORDERED: METHYLPREDNISOLONE INJ 125 MG/2 ML SDV IV ONE (22:02)
[2018-11-24] MEDS ORDERED: FUROSEMIDE INJ/PF 40 MG/4 ML SDV IV ONE (22:06)
--- NOTE | 2018-11-24 22:15 | ER Document Report ---
ED General - General Stated Complaint: TROUBLE BREATHING Time Seen by Provider: 11/24/18 22:05 Primary Care Provider: CHRIS CAMPO MD [Primary Care Provider] - Follow up as needed Mode of Arrival: Medic Information source: Patient, Emergency Med Personnel, [facility] Records Notes: 63-year-old female with COPD, congestive heart failure, atrial fibrillation, type 2 diabetes presents with complaint of shortness of breath that started today. Patient reports a productive new cough with yellow sputum. EMS reports that upon arrival patient was tachypnea, tachycardic with diffuse wheezing. Report a oxygen saturation of 84%. Patient did receive breathing treatments prior to arrival. Patient has required intubation for her COPD in the past. She does admit to continuous tobacco use. TRAVEL OUTSIDE OF THE [place] IN LAST 30 DAYS: No - HPI Onset: This morning Onset/Duration: Sudden Quality of pain: No pain Severity: None Pain Level: Denies Associated symptoms: Productive cough, Shortness of breath, Sweating. denies: Chest pain, Fever, Leg swelling, Nausea, Vomiting Exacerbated by: Walking, Coughing Relieved by: Denies Similar symptoms previously: Yes Recently seen / treated by doctor: No - Related Data Allergies/Adverse Reactions: codeine Allergy (Intermediate, Verified 11/25/18 00:45) acetaminophen [From Darvocet-N] Allergy (Verified 11/25/18 00:45) propoxyphene [From Darvocet-N] Allergy (Verified 11/25/18 00:45) artificial sweetner Allergy (Uncoded 11/25/18 00:45) Past Medical History - General Information source: Patient, Emergency Med Personnel, [facility] Records - Social History Smoking Status: Current Every Day Smoker Cigarette use (# per day): Yes - 10 Smoking Education Provided: Yes - Smoking cessation counseling was provided for 4 minutes at the bedside Frequency of alcohol use: None Drug Abuse: None Lives with: Family Family History: Reviewed & Not Pertinent Patient has suicidal ideation: No Patient has homicidal ideation: No - Past Medical History Cardiac Medical History: Reports: Hx Congestive Heart Failure, Hx Hypercholesterolemia, Hx Hypertension Pulmonary Medical History: Reports: Hx Asthma, Hx COPD, Hx Pneumonia, Hx Intubation, Hx Respiratory Failure Endocrine Medical History: Reports: Hx Diabetes Mellitus Type 2, Hx Hyp othyroidism Renal/ Medical History: Denies: Hx Peritoneal Dialysis GI Medical History: Reports: Hx Gastroesophageal Reflux Disease Psychiatric Medical History: Reports: Hx Depression Past Surgical History: Reports: Hx Hysterectomy, Other - stent was placed unknown order Review of Systems - Review of Systems Notes: REVIEW OF SYSTEMS: CONSTITUTIONAL : Denies fever, chills, or sweats. Denies recent illness. Denies weight loss, recent hospitalizations. EENT: Denies visual changes, eye pain. Denies sore throat, oral lesions, difficulty swallowing. CARDIOVASCULAR: Denies chest pain. + palpitations. Denies lower extremity edema. RESPIRATORY: + cough. + shortness of breath, wheezing. GASTROINTESTINAL: Denies abdominal pain or distention. Denies nausea, vomiting, or diarrhea. Denies blood in vomitus, stools, or per rectum. Denies black, tarry stools. Denies constipation. GENITOURINARY: Denies difficulty urinating, painful urination, frequency, blood in urine, or vaginal discharge. MUSCULOSKELETAL: Denies back or neck pain or stiffness. Denies joint pain or swelling. SKIN: Denies rash, lesions or sores. HEMATOLOGIC : Denies easy bruising or bleeding. LYMPHATIC: Denies swollen glands. NEUROLOGICAL: Denies confusion or altered mental status. Denies loss of consciousness. Denies dizziness or lightheadedness. Denies headache. Denies weakness or paralysis. Denies problems difficulty with ambulation, slurred speech. Denies sensory loss, numbness, or tingling. Denies seizures. PSYCHIATRIC: Denies anxiety or stress. Denies depression, suicidal ideation, or homicidal ideation. Denies visual or auditory hallucinations. Physical Exam - Vital signs Vitals: Pulse Ox 99 11/24/18 21:48 - Notes Notes: PHYSICAL EXAMINATION: GENERAL: Well-appearing, well-nourished and in no acute distress. HEAD: Atraumatic, normocephalic. EYES: Pupils equal round and reactive to light, extraocular movements intact, conjunctiva are normal. ENT: Nares patent, oropharynx clear without exudates. Moist mucous membranes. NECK: Normal range of motion, supple without lymphadenopathy LUNGS: Tachypnea, hypoxia, accessory muscle use present. Mild expiratory wheezing. HEART: Tachycardic, regular rhythm, no murmurs. ABDOMEN: Soft, nontender, nondistended abdomen. No guarding, no rebound. No masses appreciated. Female : deferred Musculoskeletal: Normal range of motion, no pitting or edema. No cyanosis. NEUROLOGICAL: Cranial nerves grossly intact. Normal speech, normal gait. Normal sensory, motor exams PSYCH: Normal mood, normal affect. SKIN: Warm, Dry, normal turgor, no rashes or lesions noted. Course - Re-evaluation Re-evalutation: 11/25/18 00:43 Laboratory 11/24/18 11/24/18 11/24/18 22:08 22:08 22:08 WBC 12.2 H RBC 4.81 Hgb 13.8 Hct 41.6 MCV 86 MCH 28.8 MCHC 33.3 RDW 15.3 H Plt Count 406 Total Counted 100 Seg Neutrophils % Not Reportable Seg Neuts % (Manual) 42 Lymphocytes % Not Reportable Lymphocytes % (Manual) 49 H Atypical Lymphs % 5 Monocytes % Not Reportable Monocytes % (Manual) 3 Eosinophils % Not Reportable Eosinophils % (Manual) 1 Basophils % Not Reportable Basophils % (Manual) 0 Absolute Neutrophils Not Reportable Abs Neuts (Manual) 5.1 Absolute Lymphocytes Not Reportable Abs Lymphs (Manual) 6.6 H Absolute Monocytes Not Reportable Abs Monocytes (Manual) 0.4 Absolute Eosinophils Not Reportable Absolute Eos (Manual) 0.1 Absolute Basophils Not Reportable Abs Basophils (Manual) 0.0 Clumped Platelets PRESENT Platelet Comment ADEQUATE VBG pH VBG pCO2 VBG HCO3 VBG Base Excess Sodium 137.3 Potassium 4.6 Chloride 100 Carbon Dioxide 25 Anion Gap 12 BUN 9 Creatinine 0.65 Est GFR ( Amer) > 60 Est GFR (Non-Af Amer) > 60 Glucose 282 H Calcium 9.5 Total Bilirubin 0.3 Direct Bilirubin 0.3 Neonat Total Bilirubin Not Reportable Neonat Direct Bilirubin Not Reportable Neonat Indirect Bili Not Reportable AST 42 H ALT 41 Alkaline Phosphatase 77 Creatine Kinase 63 CK-MB (CK-2) 0.88 Troponin I 0.015 NT-Pro-B Natriuret Pep 754 Total Protein 6.8 Albumin 4.1 11/24/18 22:08 WBC RBC Hgb Hct MCV MCH MCHC RDW Plt Count Total Counted Seg Neutrophils % Seg Neuts % (Manual) Lymphocytes % Lymphocytes % (Manual) Atypical Lymphs % Monocytes % Monocytes % (Manual) Eosinophils % Eosinophils % (Manual) Basophils % Basophils % (Manual) Absolute Neutrophils Abs Neuts (Manual) Absolute Lymphocytes Abs Lymphs (Manual) Absolute Monocytes Abs Monocytes (Manual) Absolute Eosinophils Absolute Eos (Manual) Absolute Basophils Abs Basophils (Manual) Clumped Platelets Platelet Comment VBG pH 7.34 VBG pCO2 47.9 VBG HCO3 25.0 VBG Base Excess -1.4 Sodium Potassium Chloride Carbon Dioxide Anion Gap BUN Creatinine Est GFR ( Amer) Est GFR (Non-Af Amer) Glucose Calcium Total Bilirubin Direct Bilirubin Neonat Total Bilirubin Neonat Direct Bilirubin Neonat Indirect Bili AST ALT Alkaline Phosphatase Creatine Kinase CK-MB (CK-2) Troponin I NT-Pro-B Natriuret Pep Total Protein Albumin Chest X-Ray 11/24/18 22:00 IMPRESSION: No acute cardiopulmonary findings. Chest/Abdomen CTA 11/24/18 22:13 IMPRESSION: No acute pulmonary embolism. Temp Pulse Resp BP Pulse Ox 97.8 F 18 106/76 98 11/24/18 22:00 11/25/18 00:21 11/25/18 00:21 11/25/18 00:21 63-year-old female with a history of COPD, CHF presents via EMS with complaint of shortness of breath. Upon arrival patient is on BiPAP. Vital signs reviewed and patient is not hypoxic, tachypneic but she is tachycardic. Bedside ultrasound was performed and showed no pericardial effusion, did show some B- lines which could indicate interstitial edema. CBC shows a mild leukocytosis but no anemia. CMP is without electrolyte abnormalities. Cardiac enzymes within normal limits. Venous blood gas within normal limits. CTA showed no evidence of pleural effusion, pneumothorax, pneumonia, pulmonary embolism. Patient did receive additional breathing treatments in the department as well as magnesium, Solu-Medrol. On reevaluation patient is resting comfortably. We did trial her off BiPAP and patient did well and had no desaturations. During her ED course she did complain of nausea which was treated with Zofran. 11/25/18 02:02 Patient was taken off BiPAP and has maintained an oxygen saturation of over 95%. She was ambulated without any desaturation. She states that she is feeling much better. Wheezing has resolved. 11/25/18 02:05 Patient presents with an exacerbation of their baseline COPD. Mild wheezing at time of presentation but vitals do not show significant hypoxemia or tachypnea. No retractions. Patient did clinically improve after receiving nebulizers here in the emergency department. Chest x-ray without evidence of an acute pneumonia. CTA without evidence of pulmonary embolism. Laboratories do not show acute kidney injury or significant leukocytosis. Patient able to ambulate without any respiratory distress. Based on patient's overall reassuring assessment, I believe they are stable for outpatient management with steroids and oral antibiotics. Patient has nebulizers at home. I do not suspect an acute alternative pathology at this time based on history and exam including acute pulmonary embolus, ACS, pneumothorax, or aortic dissection. At this time will discharge with return precautions and follow-up recommendations. Verbal discharge instructions given a the bedside and opportunity for questions given. Medication warnings reviewed. Patient is in agreement with this plan and has verbalized understanding of return precautions and the need for primary care follow-up in the next 24-72 hours. 11/25/18 02:08 - Vital Signs Vital signs: Temp Pulse Resp BP Pulse Ox 97.8 F 18 121/90 H 95 11/24/18 22:00 11/25/18 01:01 11/25/18 01:01 11/25/18 01:01 - Laboratory Result Diagrams: 11/24/18 22:08 11/24/18 22:08 Laboratory results interpreted by me: 11/24/18 11/24/18 22:08 22:08 WBC 12.2 H RDW 15.3 H Lymphocytes % (Manual) 49 H Abs Lymphs (Manual) 6.6 H Glucose 282 H AST 42 H - Diagnostic Test Radiology reviewed: Image reviewed, Reports reviewed - EKG Interpretation by Ia EKG shows normal: Sinus rhythm Rate: Tachycardia Rhythm: NSR When compared to previous EKG there are: No significant change Discharge - Discharge Clinical Impression: COPD exacerbation Condition: Good Disposition: HOME, SELF-CARE Instructions: Chronic Obstructive Lung Disease ([facility]) Additional Instructions: You were seen for a COPD exacerbation. Your symptoms improved with treatment here in the emergency department. However, it is very important that you return to the emergency department immediately if you began to have worsening difficulty breathing that does not respond to your normal home nebulizers. You are also being sent home on a five-day course of steroids that you should start taking tomorrow. Please also take the antibiotics as prescribed. Please also follow closely with your primary care physician. You should return to emergency department if you develop fever greater than 101, persistent cough, persistent vomiting, pass out, or any other symptoms that are concerning to you. Prescriptions: Doxycycline Hyclate 100 mg PO BID #14 capsule Ondansetron [Zofran Odt 4 mg Tablet] 1 - 2 tab PO Q4H PRN #15 tab.rapdis PRN Reason: For Nausea/Vomiting Prednisone [Deltasone 20 mg Tablet] 3 tab PO DAILY 5 Days #15 tablet Referrals: CHRIS CAMPO MD [Primary Care Provider] - Follow up as needed
[2018-11-24] MEDS ORDERED: ALBUTEROL SULFATE 0.083% NEB 2.5 MG/3 ML AMPUL NEB SCH (22:17)
[2018-11-24 22:35] LABS: VENOUS BLOOD BASE EXCESS -1.4 mmol/L; VENOUS BLOOD PCO2 47.9 mmHg (35-63); VENOUS BLOOD PH 7.34 (7.30-7.42)
[2018-11-24 22:41] LABS: HEMATOCRIT 41.6 % (36.0-47.0); HEMOGLOBIN 13.8 g/dL (12.0-15.5); MEAN CORPUSCULAR HEMOGLOBIN 28.8 pg (27.0-33.4); MEAN CORPUSCULAR HGB CONC 33.3 g/dL (32.0-36.0); MEAN CORPUSCULAR VOLUME 86 fl (80-97); RED BLOOD COUNT 4.81 10^6/uL (3.72-5.28); RED CELL DISTRIBUTION WIDTH 15.3 % (11.5-14.0); WHITE BLOOD COUNT 12.2 10^3/uL (4.0-10.5)
[2018-11-24 22:57] LABS: ALANINE AMINOTRANSFERASE 41 U/L (9-52); ALBUMIN 4.1 g/dL (3.5-5.0); ALKALINE PHOSPHATASE 77 U/L (38-126); ANION GAP 12 (5-19); ASPARTATE AMINO TRANSFERASE 42 U/L (14-36); BILIRUBIN,DIRECT 0.3 mg/dL (0.0-0.4); BILIRUBIN,TOTAL 0.3 mg/dL (0.2-1.3); BLOOD UREA NITROGEN 9 mg/dL (7-20); CALCIUM 9.5 mg/dL (8.4-10.2); CARBON DIOXIDE 25 mmol/L (22-30); CHLORIDE 100 mmol/L (98-107); CREATINE KINASE 63 U/L (30-135); GLUCOSE 282 mg/dL (75-110); POTASSIUM 4.6 mmol/L (3.6-5.0); SODIUM 137.3 mmol/L (137-145); TOTAL PROTEIN 6.8 g/dL (6.3-8.2)
--- NOTE | 2018-11-24 23:04 | RADIOLOGY REPORT (SQ) ---
EXAM DESCRIPTION: XR CHEST 1 VIEW COMPLETED DATE/TME: 11/24/2018 22:00 CLINICAL HISTORY: 63 years Female, respiratory distress COMPARISON: 03/17/18 NUMBER OF VIEWS/TECHNIQUE: 1/AP FINDINGS: Adequate lung volume, clear parenchyma, normal cardiac silhouette, and intact bony thorax.Atherosclerotic vascular disease. IMPRESSION: No acute cardiopulmonary findings.
[2018-11-24 23:06] LABS: ABSOLUTE LYMPHOCYTES# (MANUAL) 6.6 10^3/uL (0.5-4.7); ABSOLUTE MONOCYTES # (MANUAL) 0.4 10^3/uL (0.1-1.4); ABSOLUTE NEUTROPHILS# (MANUAL) 5.1 10^3/uL (1.7-8.2); BASOPHILS % (MANUAL) 0 % (0-2); EOSINOPHILS % (MANUAL) 1 % (0-6); LYMPHOCYTES % (MANUAL) 49 % (13-45); MONOCYTES % (MANUAL) 3 % (3-13); SEGMENTED NEUTROPHILS % (MAN) 42 % (42-78); TOTAL CELLS COUNTED 100
[2018-11-24 23:07] LABS: PLATELET CLUMPS PRESENT; PLATELET COMMENT ADEQUATE
[2018-11-24] MEDS: MAGNESIUM SULFATE/D5W 1 GM/100 ML RTUPB IV SCH (23:07)
[2018-11-24 23:08] LABS: PLATELET COUNT 406 10^3/uL (150-450)
[2018-11-24 23:27] LABS: CREATINE KINASE MB 0.88 ng/mL (<4.55); TROPONIN I 0.015 ng/mL
[2018-11-25] MEDS: MAGNESIUM SULFATE/D5W 1 GM/100 ML RTUPB IV SCH (00:19)
--- NOTE | 2018-11-25 00:23 | RADIOLOGY REPORT (SQ) ---
CT CHEST ANGIOGRAPHY WITHOUT THEN WITH IV CONTRAST HISTORY: Shortness of breath. COMPARISON: None. TECHNIQUE: CT angiogram of the chest with IV contrast. 3-D MIP images were obtained in coronal and sagittal reconstructions. This exam was performed according to our departmental dose-optimization program, which includes automated exposure control, adjustment of the mA and/or kV according to patient size and/or use of iterative reconstruction technique. FINDINGS: No filling defects are identified in the pulmonary trunk, main left and right pulmonary arteries, or the segmental branches. The thyroid gland is normal. No mediastinal or hilar adenopathy. The heart size is normal without pericardial effusion. The thoracic aorta is normal caliber. No consolidation, pleural effusion, or pneumothorax is identified. The visualized upper abdomen demonstrates no acute findings. No acute osseous findings are seen. IMPRESSION: No acute pulmonary embolism.
[2018-11-25] MEDS ORDERED: FUROSEMIDE INJ/PF 40 MG/4 ML SDV ONE (00:38)
[2018-11-25] MEDS ORDERED: ONDANSETRON HCL INJ/PF 4 MG/2 ML SDV IV ONE (01:14)
[2018-11-25] MEDS ORDERED: ONDANSETRON ODT 4 MG TAB (6 TAB/ER DISP) PO PRN (02:02)
[2018-11-25] MEDS ORDERED: DOXYCYCLINE HYCLATE 100 MG TABLET PO ONE (02:03)
[2018-11-25 02:32] VITALS: BP 110/70
[2018-11-25 03:23] LABS: APPEARANCE,URINE CLEAR; BILIRUBIN,URINE NEGATIVE (NEGATIVE); COLOR,URINE STRAW; GLUCOSE, URINE 50 mg/dL (NEGATIVE); KETONES,URINE NEGATIVE (NEGATIVE); LEUKOCYTE ESTERASE,URINE NEGATIVE (NEGATIVE); NITRITE,URINE NEGATIVE (NEGATIVE); PROTEIN,URINE 30 mg/dL (NEGATIVE); URINE SPECIFIC GRAVITY 1.039; UROBILINOGEN,URINE NEGATIVE mg/dL (<2.0)
--- NOTE | 2018-11-25 10:22 | EKG REPORT ---
SEVERITY:- ABNORMAL ECG - SINUS TACHYCARDIA MULTIFORM VENTRICULAR PREMATURE COMPLEXES BORDERLINE T WAVE ABNORMALITIES : Confirmed by: Yousif Torres 25-Nov-2018 10:20:26
== END 2018-11-25 02:33 | disposition home or self-care (01) ==
LOC: ER 21:48
DX: J44.1 Chronic obstructive pulmonary disease with (acute) exacerbation (principal); R06.00 Dyspnea, unspecified; F17.210 Nicotine dependence, cigarettes, uncomplicated; I50.9 Heart failure, unspecified; I48.91 Unspecified atrial fibrillation; Z88.6 Allergy status to analgesic agent; Z90.710 Acquired absence of both cervix and uterus
CPT/HCPCS: 93005; 94640 ×2; 99285; 96375; 96365; 36415; 82553; 82550; 85025; 80053; 81001; 84484; 82803; 83880; 71045; 71275; 93010; 94660; A9270 ×4; J1940; J2930; J3475 ×2; J2405; J7620